=== PATIENT | male | born 1960 | race Caucasian/White ===

== ENCOUNTER 2020-11-04 17:40 | Emergency (ER) | payer SELFPAY ==
--- OUTSIDE RECORDS SUMMARY | 2020-11-04 17:46 | XMS REPORT | Clinical Summary ---
:1960 Author Organization [facility] Address [address] [place] [address] Care Team Providers Name Role Phone Asked, No Pcp Primary Care Provider Unavailable Allergies Not on File Medications Not on file Active Problems Not on file Social History Tobacco Use Types Packs/Day Years Used Date Never Assessed Sex Assigned at Date Recorded Not on file Last Filed Vital Signs Not on file Plan of Treatment Health Maintenance Due Date Last Done Comments COVID-19 VACCINE (#1) 1978 COLONOSCOPY SCREENING 2012 SHINGLES VACCINES (#1) 2012 INFLUENZA VACCINE 06/02/2020 Results Not on fileafter 11/04/2019 Advance Directives For more information, please contact: [phone] 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
--- OUTSIDE RECORDS SUMMARY | 2020-11-04 17:46 | XMS REPORT | Clinical Summary ---
:1960 Author Organization [facility] Address [address] [place] [id number] Care Team Providers Name Role Phone Franklyn Primary Care Provider Allergies Active Allergy Reactions Severity Noted Date Comments Penicillins 05/18/2017 Medications Medication Sig Dispensed Refills Start Date End Date Status tamsulosin (FLOMAX) 0.4 Take 0.4 mg by 0 Active mg Cp24 24 hr capsule mouth daily. acetaminophen (TYLENOL) Take 650 mg by 0 Active 325 MG tablet mouth every 6 (six) hours as needed for Pain. Active Problems Problem Noted Date CRISTINE (acute kidney injury) 05/19/2017 Kidney stone 05/18/2017 Type 2 diabetes mellitus without complication 05/18/20 HLD (hyperlipidemia) 05/18/2017 Family History Medical History Relation Name Comments Diabetes Father Kidney disease Father Relation Name Status Comments Father Social History Tobacco Use Types Packs/Day Years Used Date Current Every Day Smoker 1 Smokeless Tobacco: Current User Chew Tobacco Cessation: Ready to Quit: No; Co unseling Given: Yes Alcohol Use Drinks/Week oz/Week Comments Yes Sex Assigned at Date Recorded Not on file Last Filed Vital Signs Not on file Plan of Treatment Not on file Implants Implanted Type Area Editor At Large Device Shelf Model / Identifier Expiration Serial / Date Lot Stent Uret Vl Inj [id number] - [id number] Uro Stent Righ t: [place] [id number] 03/01/2019 [id number] / Implanted: Qty: 1 on 05/22/2017 by Marquise Vasquez MD at [facility] Ureter SCI:UROLOGY/GYNE / COLOGY [id number] Results Not on fileafter 11/04/2019 Advance Directives For more information, please contact: [phone] Code Status Date Activated Date Inactivated Comments Full Code 05/18/2017 10:17 PM 05/22/2017 6:10 PM This code status was determined by: Patient
--- OUTSIDE RECORDS SUMMARY | 2020-11-04 17:47 | XMS REPORT | Continuity of Care Document ---
:1960 Author Organization [facility] t Address [address] [place] [address] Care Team Providers Name Role Phone Asked, Pcp Primary Care Physician Unavailable CAILIN Attending Clinician Unavailable CAILIN Admitting Clinician Unavailable Problems Condition Condition Condition Status Onset Resolution Last Treating Co mments Source Name Details Category Date Date Treatment Clinician Date CRISTINE (acute CRISTINE (acute Disease Active [facility]) 00:00: Medical 00 [place] Kidney Kidney Disease Active [facility] stone stone 05-18 [facility] - 00:00: Medical 00 [place] Type 2 Type [address] [facility] diabetes diabetes 05-18 [facility] - mellitus mellitus 00:00: Medica l without without 00 [place] complicati complicati on on HLD HLD Disease Active [facility] (hyperlipi (hyperlipi 05-18 Shae kes - demia) demia) 00:00: Medical 00 Center Allergies, Adverse Reactions, Alerts Allergy Allergy Status Severity Reaction(s) Onset Inactive Treating Comm ents Source Name Type Date Date Clinician Penicill Propensi Active [facility] 05-18 [facility] - adverse 00:00: Medical reaction 00 [place] s Family History Family Member Diagnosis Comments Start Date Stop Date Source Natural father Diabetes [facility] Natural father Kidney disease [facility] Social History Social Habit Start Date Stop Date Quantity Comments Source History of tobacco Chews Tobacco [facility] use Medical [place] Sex Assigned At [facility] Cigarettes smoked 2017-05-22 2017-05-22 [facility] - current (pack per 00:00:00 00:00:00 Medical Center day) - Reported Tobacco use and 2017-05-22 2017-05-[address] [facility] - exposure 00:00:00 00:00:00 [facility] Alcohol intake 2017-05-22 2017-05-22 [facility] (finding) Smoking Status Start Date Stop Date Source Current every day smoker 2017-05-22 00:00:[address] [facility] Center Medications Ordered Filled Start Stop Current Ordering Indication Dosage Frequency Signature Comments Components Source Medication Medication Date Date Medication? Clinician (SIG) Name Name tamsulosin 2017- Yes .4mg QD Take 0.[address] (FLOMAX) 7-21 mg by [facility] - 0.4 mg Cp24 16:10: mouth Medic al 24 hr 26 daily. Center capsule acetaminoph Yes 650mg Take [address] en 7-21 mg by [facility] - (TYLENOL) 16:10: mouth Medical 325 MG 26 every 6 Center tablet (six) hours as needed for Pain. Procedures This patient has no known procedures. Plan of Care Planned Activity Planned Date Details Comments Source Future Scheduled 2020-06-02 INFLUENZA VACCINE [facility] 00:00:00 [code = INFLUENZA VACCINE] Future Scheduled 2012 COLONOSCOPY SCREENING [facility] 00:00:00 [code = COLONOSCOPY SCREENING] Future Scheduled 2012 SHINGLES VACCINES [facility] 00:00:00 (#1) [code = SHINGLES VACCINES (#1)] Future Scheduled 1978 COVID-19 VACCINE (#1) [facility] 00:00:00 [code = COVID-19 VACCINE (#1)] Results Test Description Test Time Test Comments Results Result Comments Source POCT-GLUCOSE METER 2017-05-22 11:34:00 Test Item Value Reference Range Interpretation Comme nts POC-GLUCOSE METER ([employer]) (test 147 mg/dL 70-110 H TESTED AT [facility] [address] [facility] code = 1538) [facility] 7703 0 POCT-GLUCOSE [id number] 06:14:00 Test Item Value Reference Range Interpretation Comments POC-GLUCOSE METER 96 mg/dL 70-110 TESTED AT [facility] 6720 (BEAKER) (test code = [facility] [address] 1538) POCT-GLUCOSE [id number] 21:48:00 Test Item Value Reference Range Interpretation Comments POC-GLUCOSE METER 114 mg/dL 70-110 H TESTED AT [place] [address] ([facility]) (test code = [facility] 1538) [id number] POCT-GLUCOSE [id number] 17:00:00 Test Item Value Reference Range Interpretation Comments POC-GLUCOSE METER 151 mg/dL 70-110 H TESTED AT [place] [address] ([facility]) (test code = [facility] 1538) [id number] POCT-GLUCOSE [id number] 12:06:00 Test Item Value Reference Range Interpretation Comments POC-GLUCOSE METER 86 mg/dL 70-110 TESTED AT [place] [address] ([facility]) (test code = [facility] [address] 1538) POCT-GLUCOSE [id number] 07:06:00 Test Item Value Reference Range Interpretation Comments POC-GLUCOSE METER 106 mg/dL 70-110 TESTED AT [place] [address] ([facility]) (test code = [facility] 1538) [id number] 05:41:00 Test Item Value Reference Range Interpretation Comments PHOSPHORUS (BEAKER) (test code = 4.0 mg/dL 2.3-4.7 604) [id number] 05:41:00 Test Item Value Reference Range Interpretation Comments MAGNESIUM (BEAKER) (test code = 1.9 mg/dL 1.6-2.6 627) BASIC METABOLIC [id number] 05:41:00 Test Item Value Reference Range Interpretation Comments SODIUM (BEAKER) 137 meq/L 136-145 (test code = 381) POTASSIUM (BEAKER) 4.1 meq/L 3.5-5.1 (test code = 379) CHLORIDE (BEAKER) 104 meq/L 98-107 (test code = 382) CO2 (BEAKER) (test 25 meq/L 22-29 code = 355) BLOOD UREA NITROGEN 17 mg/dL 7-21 (BEAKER) (test code = 354) CREATININE (BEAKER) 1.42 mg/dL 0.57-1.25 H (test code = 358) GLUCOSE RANDOM 172 mg/dL 70-105 H (BEAKER) (test code = 652) CALCIUM (BEAKER) 8.8 mg/dL 8.4-10.2 (test code = 697) EGFR (BEAKER) (test 52 mL/min/1.73 ESTIMA JACK GFR IS code = 1092) sq m NOT ACCURATE CREATININE CLEARANCE IN PREDICTING GLOMERULAR FILTRATION RATE . ESTIMATED GFR I S NOT APPLICABLE FOR DIALYSIS PATIEN TS. CBC W/PLT COUNT & AUTO [id number] 05:03:00 Test Item Value Reference Range Interpretation Comments WHITE BLOOD CELL COUNT (BEAKER) 8.7 K/ L 4.0-10.0 (test code = 775) RED BLOOD CELL COUNT (BEAKER) 4.73 M/ L 4.20-5.80 (test code = 761) HEMOGLOBIN (BEAKER) (test code = 14.1 GM/DL 13.0-16.8 410) HEMATOCRIT (BEAKER) (test code = 40.4 % 40.0-50.0 411) MEAN CORPUSCULAR VOLUME (BEAKER) 85.3 fL 82.0-98.0 (test code = 753) MEAN CORPUSCULAR HEMOGLOBIN 29.7 pg 27.0-33.0 (BEAKER) (test code = 751) MEAN CORPUSCULAR HEMOGLOBIN CONC 34.8 GM/DL 32.0-36.0 (BEAKER) (test code = 752) RED CELL DISTRIBUTION WIDTH 13.4 % 10.3-14.2 (BEAKER) (test code = 412) PLATELET COUNT (BEAKER) (test 206 K/CU MM 150-430 code = 756) MEAN PLATELET VOLUME (BEAKER) 7.6 fL 6.5-10.5 (test code = 754) NUCLEATED RED BLOOD CELLS 0 /100 WBC 0-0 (BEAKER) (test code = 413) NEUTROPHILS RELATIVE PERCENT 66 % (BEAKER) (test code = 429) LYMPHOCYTES RELATIVE PERCENT 21 % (BEAKER) (test code = 430) MONOCYTES RELATIVE PERCENT 9 % (BEAKER) (test code = 431) EOSINOPHILS RELATIVE PERCENT 2 % (BEAKER) (test code = 432) BASOPHILS RELATIVE PERCENT 1 % (BEAKER) (test code = 437) NEUTROPHILS ABSOLUTE COUNT 5.73 K/ L 1.80-8.00 (BEAKER) (test code = 670) LYMPHOCYTES ABSOLUTE COUNT 1.85 K/ L 1.48-4.50 (BEAKER) (test code = 414) MONOCYTES ABSOLUTE COUNT (BEAKER) 0.81 K/ L 0.00-1.30 (test code = 415) EOSINOPHILS ABSOLUTE COUNT 0.21 K/ L 0.00-0.50 (BEAKER) (test code = 416) BASOPHILS ABSOLUTE COUNT (BEAKER) 0.06 K/ L 0.00-0.20 (test code = 417) 0.00CALCIUM, [id number] 04:57:00 Test Item Value Reference Range Interpretation Comments CALCIUM IONIZED (BEAKER) (test 1.12 mmol/L 1.12-1.27 code = 698) PH, BLOOD (AKER) (test code = 7.38 1810) POCT-GLUCOSE [id number] 21:15:00 Test Item Value Reference Range Interpretation Comments POC-GLUCOSE METER 110 mg/dL 70-110 TESTED AT [place] [address] ([facility]) (test code = [place] 1538) [id number] POCT-GLUCOSE [id number] 17:58:00 Test Item Value Reference Range Interpretation Comments POC-GLUCOSE METER 132 mg/dL 70-110 H TESTED AT [place] [address] ([facility]) (test code = [place] 1538) [id number] POCT-GLUCOSE [id number] 11:23:00 Test Item Value Reference Range Interpretation Comments POC-GLUCOSE METER 156 mg/dL 70-110 H TESTED AT [place] [address] ([facility]) (test code = [place] 1538) [id number] URINE [id number] 10:34:00 Test Item Value Reference Range Interpretation Comments CULTURE (BEAKER) (test code = 1095) No growth POCT-GLUCOSE [id number] 07:28:00 Test Item Value Reference Range Interpretation Comments POC-GLUCOSE METER 124 mg/dL 70-110 H TESTED AT [place] [address] ([facility]) (test code = [place] 1538) [id number] 06:39:00 Test Item Value Reference Range Interpretation Comments PHOSPHORUS (BEAKER) (test code = 4.0 mg/dL 2.3-4.7 604) [id number] 06:39:00 Test Item Value Reference Range Interpretation Comments MAGNESIUM (BEAKER) (test code = 1.9 mg/dL 1.6-2.6 627) BASIC METABOLIC [id number] 06:39:00 Test Item Value Reference Range Interpretation Comments SODIUM (BEAKER) 139 meq/L 136-145 (test code = 381) POTASSIUM (BEAKER) 4.7 meq/L 3.5-5.1 (test code = 379) CHLORIDE (BEAKER) 106 meq/L 98-107 (test code = 382) CO2 (BEAKER) (test 23 meq/L 22-29 code = 355) BLOOD UREA NITROGEN 17 mg/dL 7-21 (BEAKER) (test code = 354) CREATININE (BEAKER) 1.37 mg/dL 0.57-1.25 H (test code = 358) GLUCOSE RANDOM 127 mg/dL 70-105 H (BEAKER) (test code = 652) CALCIUM (BEAKER) 9.3 mg/dL 8.4-10.2 (test code = 697) EGFR (BEAKER) (test 54 mL/min/1.73 ESTIMA JACK GFR IS code = 1092) sq m NOT ACCURATE CREATININE CLEARANCE IN PREDICTING GLOMERULAR FILTRATION RATE . ESTIMATED GFR I S NOT APPLICABLE FOR DIALYSIS PATIEN TS. LIPID [id number] 06:39:00 Test Item Value Reference Range Interpretation Comments TRIGLYCERIDES (BEAKER) (test code = 149 mg/dL 540) CHOLESTEROL (BEAKER) (test code = 188 mg/dL 631) HDL CHOLESTEROL (BEAKER) (test code 29 mg/dL = 976) LDL CHOLESTEROL CALCULATED (BEAKER) 129 mg/dL (test code = 633) Triglyceride Reference Range: Low Risk <150 Borderline 150-199 High Risk 200-499 Very High Risk >=500Cholesterol Reference Range: Low Risk <200 Borderline 200-239 High Risk >240HDL Cholesterol Reference Range: Low Risk >=60 High Risk <40LDL Cholesterol Reference Range: Optimal <100 Near Optimal 100-129 Borderline 130-159 High 160-189 Very High >=190CBC W/PLT COUNT & AUTO [id number] 06:14:00 Test Item Value Reference Range Interpretation Comments WHITE BLOOD CELL COUNT (BEAKER) 9.4 K/ L 4.0-10.0 (test code = 775) RED BLOOD CELL COUNT (BEAKER) 4.83 M/ L 4.20-5.80 (test code = 761) HEMOGLOBIN (BEAKER) (test code = 13.9 GM/DL 13.0-16.8 410) HEMATOCRIT (BEAKER) (test code = 41.2 % 40.0-50.0 411) MEAN CORPUSCULAR VOLUME (BEAKER) 85.2 fL 82.0-98.0 (test code = 753) MEAN CORPUSCULAR HEMOGLOBIN 28.7 pg 27.0-33.0 (BEAKER) (test code = 751) MEAN CORPUSCULAR HEMOGLOBIN CONC 33.7 GM/DL 32.0-36.0 (BEAKER) (test code = 752) RED CELL DISTRIBUTION WIDTH 13.2 % 10.3-14.2 (BEAKER) (test code = 412) PLATELET COUNT (BEAKER) (test 212 K/CU MM 150-430 code = 756) MEAN PLATELET VOLUME (BEAKER) 7.9 fL 6.5-10.5 (test code = 754) NUCLEATED RED BLOOD CELLS 0 /100 WBC 0-0 (BEAKER) (test code = 413) NEUTROPHILS RELATIVE PERCENT 71 % (BEAKER) (test code = 429) LYMPHOCYTES RELATIVE PERCENT 18 % (BEAKER) (test code = 430) MONOCYTES RELATIVE PERCENT 8 % (BEAKER) (test code = 431) EOSINOPHILS RELATIVE PERCENT 3 % (BEAKER) (test code = 432) BASOPHILS RELATIVE PERCENT 0 % (BEAKER) (test code = 437) NEUTROPHILS ABSOLUTE COUNT 6.65 K/ L 1.80-8.00 (BEAKER) (test code = 670) LYMPHOCYTES ABSOLUTE COUNT 1.71 K/ L 1.48-4.50 (BEAKER) (test code = 414) MONOCYTES ABSOLUTE COUNT (BEAKER) 0.77 K/ L 0.00-1.30 (test code = 415) EOSINOPHILS ABSOLUTE COUNT 0.25 K/ L 0.00-0.50 (BEAKER) (test code = 416) BASOPHILS ABSOLUTE COUNT (BEAKER) 0.03 K/ L 0.00-0.20 (test code = 417) 0.00CALCIUM, [id number] 06:11:00 Test Item Value Reference Range Interpretation Comments CALCIUM IONIZED (BEAKER) (test 1.13 mmol/L 1.12-1.27 code = 698) PH, BLOOD ([facility]) (test code = 7.34 1810) POCT-GLUCOSE [id number] 21:47:00 Test Item Value Reference Range Interpretation Comments POC-GLUCOSE METER 127 mg/dL 70-110 H TESTED AT [place] [address] ([facility]) (test code = [facility] 1538) [id number] POCT-GLUCOSE [id number] 17:00:00 Test Item Value Reference Range Interpretation Comments POC-GLUCOSE METER 122 mg/dL 70-110 H TESTED AT [place] [address] ([facility]) (test code = [facility] 1538) [id number] POCT-GLUCOSE [id number] 11:02:00 Test Item Value Reference Range Interpretation Comments POC-GLUCOSE METER 128 mg/dL 70-110 H TESTED AT [place] [address] ([facility]) (test code = [facility] 1538) [id number] POCT-GLUCOSE [id number] 07:56:00 Test Item Value Reference Range Interpretation Comments POC-GLUCOSE METER 116 mg/dL 70-110 H TESTED AT [place] [address] ([facility]) (test code = [facility] 1538) [id number] HEMOGLOBIN [id number] 07:40:00 Test Item Value Reference Range Interpretation Comments HEMOGLOBIN A1C ([facility]) (test code = 5.8 % 4.3-6.1 368) CBC W/PLT COUNT & AUTO [id number] 06:48:00 Test Item Value Reference Range Interpretation Comments WHITE BLOOD CELL COUNT ([facility]) 8.0 K/ L 4.0-10.0 (test code = 775) RED BLOOD CELL COUNT ([facility]) 4.79 M/ L 4.20-5.80 (test code = 761) HEMOGLOBIN ([facility]) (test code = 13.9 GM/DL 13.0-16.8 410) HEMATOCRIT ([facility]) (test code = 41.1 % 40.0-50.0 411) MEAN CORPUSCULAR VOLUME ([facility]) 85.7 fL 82.0-98.0 (test code = 753) MEAN CORPUSCULAR HEMOGLOBIN 28.9 pg 27.0-33.0 ([facility]) (test code = 751) MEAN CORPUSCULAR HEMOGLOBIN CONC 33.7 GM/DL 32.0-36.0 (BEAKER) (test code = 752) RED CELL DISTRIBUTION WIDTH 11.8 % 10.3-14.2 (BEAKER) (test code = 412) PLATELET COUNT (BEAKER) (test 200 K/CU MM 150-430 code = 756) MEAN PLATELET VOLUME (BEAKER) 7.6 fL 6.5-10.5 (test code = 754) NUCLEATED RED BLOOD CELLS 0 /100 WBC 0-0 (BEAKER) (test code = 413) NEUTROPHILS RELATIVE PERCENT 69 % (BEAKER) (test code = 429) LYMPHOCYTES RELATIVE PERCENT 18 % (BEAKER) (test code = 430) MONOCYTES RELATIVE PERCENT 10 % (BEAKER) (test code = 431) EOSINOPHILS RELATIVE PERCENT 2 % (BEAKER) (test code = 432) BASOPHILS RELATIVE PERCENT 0 % (BEAKER) (test code = 437) NEUTROPHILS ABSOLUTE COUNT 5.55 K/ L 1.80-8.00 (BEAKER) (test code = 670) LYMPHOCYTES ABSOLUTE COUNT 1.47 K/ L 1.48-4.50 L (BEAKER) (test code = 414) MONOCYTES ABSOLUTE COUNT (BEAKER) 0.78 K/ L 0.00-1.30 (test code = 415) EOSINOPHILS ABSOLUTE COUNT 0.18 K/ L 0.00-0.50 (BEAKER) (test code = 416) BASOPHILS ABSOLUTE COUNT (BEAKER) 0.03 K/ L 0.00-0.20 (test code = 417) [id number] 06:33:00 Test Item Value Reference Range Interpretation Comments MAGNESIUM (BEAKER) (test code = 2.1 mg/dL 1.6-2.6 627) BASIC METABOLIC [id number] 06:33:00 Test Item Value Reference Range Interpretation Comments SODIUM (BEAKER) 137 meq/L 136-145 (test code = 381) POTASSIUM (BEAKER) 4.1 meq/L 3.5-5.1 (test code = 379) CHLORIDE (BEAKER) 105 meq/L 98-107 (test code = 382) CO2 (BEAKER) (test 23 meq/L 22-29 code = 355) BLOOD UREA NITROGEN 17 mg/dL 7-21 (BEAKER) (test code = 354) CREATININE (BEAKER) 1.42 mg/dL 0.57-1.25 H (test code = 358) GLUCOSE RANDOM 110 mg/dL 70-105 H (BEAKER) (test code = 652) CALCIUM (BEAKER) 8.7 mg/dL 8.4-10.2 (test code = 697) EGFR (BEAKER) (test 52 mL/min/1.73 ESTIMA JACK GFR IS code = 1092) sq m NOT ACCURATE CREATININE CLEARANCE IN PREDICTING GLOMERULAR FILTRATION RATE . ESTIMATED GFR I S NOT APPLICABLE FOR DIALYSIS PATIEN TS. PROTHROMBIN [id number] 06:19:00 Test Item Value Reference Range Interpretation Comments PROTIME (BEAKER) (test code = 14.2 seconds 11.7-14.7 759) INR (BEAKER) (test code = 370) 1.1 <=5.9 RECOMMENDED COUMADIN/WARFARIN INR THERAPY RANGESSTANDARD DOSE: 2.0 - 3.0 Includes: PROPHYLAXIS forvenous thrombosis, systemic embolization; TREATMENT for venous thrombosis and/or pulmonary embolus.HIGH RISK: Target INR is 2.5-3.5 for patients with mechanical heart valves.URINALYSIS W/ [id number] 01:30:00 Test Item Value Reference Range Interpretation Comments COLOR (BEAKER) (test code = Yellow 470) CLARITY (BEAKER) (test code = Clear 469) SPECIFIC GRAVITY UA (BEAKER) 1.018 1.001-1.035 (test code = 468) PH UA (BEAKER) (test code = 5.5 5.0-8.0 467) PROTEIN UA (BEAKER) (test code 10 mg/dL Negative A = 464) GLUCOSE UA (BEAKER) (test code 200 mg/dL Negative A = 365) KETONES UA (BEAKER) (test code Trace Negative A = 371) BILIRUBIN UA (BEAKER) (test Negative Negative code = 462) BLOOD UA (BEAKER) (test code = Small Negative A 461) NITRITE UA (BEAKER) (test code Negative Negative = 465) LEUKOCYTE ESTERASE UA (BEAKER) Negative Negative (test code = 466) UROBILINOGEN UA (BEAKER) (test 0.2 mg/dL 0.2-1.0 code = 463) RBC UA (BEAKER) (test code = 8 /HPF 519) WBC UA (BEAKER) (test code = 2 /HPF 520) MUCUS (BEAKER) (test code = Rare 1574) SQUAMOUS EPITHELIAL (BEAKER) < /HPF (test code = 516) SOURCE(BEAKER) (test code = Urine, Voided 7209)
--- NOTE | 2020-11-04 19:38 | RAD REPORT ---
EXAM DESCRIPTION: RAD - Foot Left 3 View - 11/04/2020 7:10 pm CLINICAL HISTORY: Pain;Swelling COMPARISON: No comparisons FINDINGS: Mild soft tissue swelling is seen in the region of the forefoot. No fracture or dislocatio n. Large calcaneal spurs.
[2020-11-04] MEDS ORDERED: KETOROLAC 30 MG/ML INJ ONE (20:07)
[2020-11-04] MEDS ORDERED: CLINDAMYCIN 600MG/D5W 600 MG/50 ML BAG IV ONE (20:07)
[2020-11-04] MEDS ORDERED: TETANUS & DIPHTHERIA TOX,ADULT 0.5 ML VIAL ONE (20:08)
[2020-11-04 20:26] LABS: Absolute Lymphocytes (CBC) 2.1 K/uL (0.7-4.9); Basophils % 0.6 % (0-1.3); Lymphocytes % 16.8 % (15.3-44.8); MPV 9.4 fL (7.6-11.3); RBC Red Blood Cell Count 5.48 M/uL (4.33-5.43)
[2020-11-04 20:41] LABS: Albumin 3.7 g/dL (3.4-5.0); Bilirubin Direct 0.1 mg/dL (0-0.2); Bilirubin Total 0.6 mg/dL (0.2-1.0); Protein, Total 7.5 g/dL (6.4-8.2)
--- NOTE | 2020-11-04 21:05 | ER ---
Nurse's Notes [facility] Name: Paras Wheeler Age: 60 yrs Sex: Male : 1960 Arrival Date: 11/04/2020 Time: 17:43 Bed 15 Private MD: Diagnosis: Puncture wound without foreign body, left foot;Cellulitis of left lower limb Presentation: 11/04 18:12 Chief complaint: Patient states: Stepped on a nail with L foot 3 days ago. HX of ss diabetes. Pt reports that pain and redness began today. Coronavirus screen: Client denies travel out of the [place] in the last 14 days. Ebola Screen: Patient denies exposure to infectious person. Patient denies travel to an Ebola-affected area in the 21 days before illness onset. Initial Sepsis Screen: Does the patient meet any 2 criteria? No. Patient's initial sepsis screen is negative. Does the patient have a suspected source of infection? Yes: Skin breakdown/wound. Risk Assessment: Do you want to hurt yourself or someone else? Patient reports no desire to harm self or others. Onset of symptoms was October 31, 2020. 18:12 Method Of Arrival: Ambulatory ss 18:12 Acuity: CHENCHO 3 ss Historical: - Allergies: 18:17 PENICILLINS (Hives, rash); ss - PMHx: 18:17 Diabetes - NIDDM; Hyperlipidemia; Hypertension; ss - Immunization history:: Last tetanus immunization: Not up to date. - Social history:: Smoking status: Patient reports use of chewing tobacco. Screenin:35 Abuse screen: Denies threats or abuse. Nutritional screening: No deficits noted. jb4 Tuberculosis screening: No symptoms or risk factors identified. Fall Risk None identified. Assessment: 19:41 General: Appears in no apparent distress. comfortable, Behavior is calm, cooperative, jb4 appropriate for age. Pain: Complains of pain in ball of left foot Pain does not radiate. Pain currently is 0 out of 10 on a pain scale. at worst was 8 out of 10 on a pain scale. Quality of pain is described as throbbing. Neuro: Level of Consciousness is awake, alert, obeys commands, Oriented to person, place, time, situation. Cardiovascular: Patient's skin is warm and dry. Respiratory: Airway is patent Respiratory effort is even, unlabored, Respiratory pattern is regular, symmetrical. GI: No signs and/or symptoms were reported involving the gastrointestinal system. : No signs and/or symptoms were reported regarding the genitourinary system. EENT: No signs and/or symptoms were reported regarding the EENT system. Derm: Skin is intact, Skin is pink, warm \T\ dry. Musculoskeletal: 21:29 Reassessment: Patient appears in no apparent distress at this time. Patient and/or jb4 family updated on plan of care and expected duration. Pain level reassessed. Patient is alert, oriented x 3, equal unlabored respirations, skin warm/dry/pink. Patient states feeling better. Vital Signs: 18:12 Pulse 92; Resp 16; Temp 98.6(TE); Pulse Ox 99% on R/A; Weight 108.86 kg; Height 6 ft. 0 ss in. (182.88 cm); Pain 0/10; 18:17 BP 152 / 85; ss 19:35 BP 151 / 90; Pulse 80; Resp 16; Pulse Ox 100% on R/A; jb4 20:00 BP 126 / 78; Pulse 84; Resp 16; Pulse Ox 98% on R/A; jb4 18:12 Body Mass Index 32.55 (108.86 kg, 182.88 cm) ss ED Course: 17:43 Patient arrived in ED. rg4 18:16 Triage completed. ss 18:17 Arm band placed on right wrist. ss 19:09 XRAY Foot LEFT 3 View In Process Unspecified. EDMS 19:19 Dominik Swain MD is Attending Physician. ss 19:31 Niall Rivera, RN is Primary Nurse. jb4 19:35 Patient has correct armband on for positive identification. Bed in low position. Call jb4 light in reach. Side rails up X 1. Pulse ox on. NIBP on. 20:00 Inserted saline lock: 22 gauge in left antecubital area, using aseptic technique. Blood jb4 collected. started by Wm. environmental technician. 21:30 No provider procedures requiring assistance completed. IV discontinued, intact, jb4 bleeding controlled, No redness/swelling at site. Pressure dressing applied. 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 Exp: jb4 02/21/2022. Lot #: [id number]. } Route: IM; Site: right deltoid; 21:00 Follow up: Response: No adverse reaction jb4 Intake: 21:03 IV: 50ml; Total: 50ml. jb4 Outcome: 21:04 Discharge ordered by . tw4 21:32 Discharged to home ambulatory. jb4 21:32 Condition: stable 21:32 Discharge instructions given to patient, Instructed on discharge instructions, follow up and referral plans. medication usage, Demonstrated understanding of instructions, follow-up care, medications, Prescriptions given X 2. 21:33 Patient left the ED. jb4 Signatures: Dispatcher [employer] EDMS Malena Diaz RN RN ss Garcia, Rubi 4 Niall Rivera RN RN jb4 Dominik Swain MD MD tw4
--- NOTE | 2020-11-04 21:05 | EDPHYS ---
Physician Documentation [facility] Name: Paras Wheeler Age: 60 yrs Sex: Male : 1960 Arrival Date: 11/04/2020 Time: 17:43 Bed 15 Private MD: ED Physician Dominik Swain HPI: 11/04 20:50 This 60 yrs old Male presents to ER via Ambulatory with complaints of Foot tw4 Pain. 20:50 The patient presents with an injury. The complaints affect the left foot. Context: The tw4 problem was sustained at home, resulted from the patient stepping on a nail. 20:57 Onset: The symptoms/episode began/occurred 3 day(s) ago. Modifying factors: The tw4 symptoms are alleviated by nothing, the symptoms are aggravated by nothing. Severity of symptoms: At their worst the symptoms were moderate, in the emergency department the symptoms are unchanged. The patient has not experienced similar symptoms in the past. Historical: - Allergies: 18:17 PENICILLINS (Hives, rash); ss - PMHx: 18:17 Diabetes - NIDDM; Hyperlipidemia; Hypertension; ss - Immunization history:: Last tetanus immunization: Not up to date. - Social history:: Smoking status: Patient reports use of chewing tobacco. ROS: 20:57 MS/extremity: Positive for injury or acute deformity, pain, puncture. tw4 20:57 Constitutional: Negative for fever, chills, and weight loss, Eyes: Negative for injury, pain, redness, and discharge, Cardiovascular: Negative for chest pain, palpitations, and edema, Respiratory: Negative for shortness of breath, cough, wheezing, and pleuritic chest pain, Abdomen/GI: Negative for abdominal pain, nausea, vomiting, diarrhea, and constipation, Back: Negative for injury and pain, MS/Extremity: Negative for injury and deformity, Skin: Negative for injury, rash, and discoloration, Neuro: Negative for headache, weakness, numbness, tingling, and seizure. Exam: 20:57 Constitutional: This is a well developed, well nourished patient who is awake, alert, tw4 and in no acute distress. Head/Face: Normocephalic, atraumatic. Chest/axilla: Normal chest wall appearance and motion. Nontender with no deformity. No lesions are appreciated. Cardiovascular: Regular rate and rhythm with a normal S1 and S2. No gallops, murmurs, or rubs. Normal PMI, no JVD. No pulse deficits. Respiratory: Lungs have equal breath sounds bilaterally, clear to auscultation and percussion. No rales, rhonchi or wheezes noted. No increased work of breathing, no retractions or nasal flaring. Abdomen/GI: Soft, non-tender, with normal bowel sounds. No distension or tympany. No guarding or rebound. No evidence of tenderness throughout. Back: No spinal tenderness. No costovertebral tenderness. Full range of motion. MS/ Extremity: Pulses equal, no cyanosis. Neurovascular intact. Full, normal range of motion. Neuro: Awake and alert, GCS 15, oriented to person, place, time, and situation. Cranial nerves II-XII grossly intact. Motor strength 5/5 in all extremities. Sensory grossly intact. Cerebellar exam normal. Normal gait. Vital Signs: 18:12 Pulse 92; Resp 16; Temp 98.6(TE); Pulse Ox 99% on R/A; Weight 108.86 kg; Height 6 ft. 0 ss in. (182.88 cm); Pain 0/10; 18:17 BP 152 / 85; ss 19:35 BP 151 / 90; Pulse 80; Resp 16; Pulse Ox 100% on R/A; jb4 20:00 BP 126 / 78; Pulse 84; Resp 16; Pulse Ox 98% on R/A; jb4 18:12 Body Mass Index 32.55 (108.86 kg, 182.88 cm) ss MDM: 19:35 Patient medically screened. tw4 20:57 Differential diagnosis: fracture, penetrating trauma. Data reviewed: vital signs, tw4 nurses notes. Data reviewed: lab test result(s), CBC, electrolytes, radiologic studies, plain films. Data interpreted: Pulse oximetry: Interpretation: normal. Test interpretation: by ED physician or midlevel provider: plain radiologic studies. Medication response: Response to treatment: the patient's symptoms have markedly improved after treatment, and as a result, I will discharge patient. Special discussion: I discussed with the patient/guardian in detail that at this point there is no indication for admission to the hospital. It is understood, however, that if the symptoms persist or worsen the patient needs to return immediately for re-evaluation. 11/04 19:36 Order name: Basic Metabolic Panel tw4 11/04 19:36 Order name: CBC with Diff tw4 11/04 20:59 Interpretation: Normal except: RBC 5.48; WBC 12.7; NEUT A 9.0. tw4 11/04 18:36 Order name: XRAY Foot LEFT 3 View; Complete Time: 20:46 ss 11/04 19:36 Order name: Hepatic Function; Complete Time: 20:46 tw4 11/04 20:46 Interpretation: Normal except: AST 14; ALK 136; GLOB 3.8; A/G 1.0. tw4 11/04 19:37 Order name: Basic Metabolic Panel; Complete Time: 20:46 EDMS 11/04 20:46 Interpretation: Normal except: GFR 86; GLUC 230. tw4 11/04 20:50 Order name: CBC Smear Scan EDMS 11/04 19:36 Order name: IV Saline Lock; Complete Time: 20:33 tw4 11/04 19:36 Order name: Labs collected and sent; Complete Time: 20:12 tw4 Administered Medications: 20:33 Drug: Clindamycin 600 mg Route: IVPB; Infused Over: 30 mins; Site: left antecubital; [facility] 21:03 Follow up: Response: No adverse reaction; IV Status: Completed infusion; IV Intake: [id number] 20:33 Drug: TORadol 30 mg Route: IVP; Site: left antecubital; [facility] 21:00 Follow up: Response: No adverse reaction; Pain is decreased [facility] 20:33 Drug: Tetanus-Diphtheria Toxoid Ped 0.5 ml {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 Exp: jb4 02/21/2022. Lot #: [id number]. } Route: IM; Site: right deltoid; 21:00 Follow up: Response: No adverse reaction [facility] Disposition: 11/04/20 21:04 Discharged to Home. Impression: Puncture wound without foreign body, left foot, Cellulitis of left lower limb. - Condition is Stable. - Discharge Instructions: Cellulitis, Adult. - Prescriptions for Cleocin 300 mg Oral Capsule - take 1 capsule by ORAL route every 6 hours for 10 days; 40 capsule. Ibuprofen 800 mg Oral Tablet - take 1 tablet by ORAL route every 8 hours As needed take with food; 30 tablet. - Medication Reconciliation Form, Thank You Letter, Antibiotic Education, Prescription Opioid Use form. - Follow up: Private Physician; When: Upon discharge from the Emergency Department; Reason: Recheck today's complaints, Continuance of care, Re-evaluation by your physician. - Problem is new. - Symptoms have improved. Signatures: Dispatcher [employer] EDMS Malena Diaz, RN RN Niall Rivera RN RN jb4 Dominik Swain MD MD tw4 Corrections: (The following items were deleted from the chart) 21:33 21:04 11/04/2020 21:04 Discharged to Home. Impression: Puncture wound without foreign jb4 body, left foot; Cellulitis of left lower limb. Condition is Stable. Forms are Medication Reconciliation Form, Thank You Letter, Antibiotic Education, Prescription Opioid Use. Follow up: Private Physician; When: Upon discharge from the Emergency Department; Reason: Recheck today's complaints, Continuance of care, Re-evaluation by your physician. Problem is new. Symptoms have improved. tw4
[2020-11-04 21:31] LABS: Blood Morphology Comment NOT SEEN (NOT SEEN); Platelet Estimate ADEQ; White Blood Cell Scan OK (OK)
[2020-11-04 21:46] VITALS: TEMP 98.6
[2020-11-04 21:50] VITALS: BP 126/78; O2SAT 98
== END 2020-11-04 21:33 | disposition home or self-care (01) ==
LOC: ER 17:40
DX: L03.116 Cellulitis of left lower limb (principal); S91.332A Puncture wound without foreign body, left foot, initial encounter; W22.8XXA Striking against or struck by other objects, initial encounter; Y93.9 Activity, unspecified; Y92.009 Unspecified place in unspecified non-institutional (private) residence as the place of occurrence of the external cause; Z23 Encounter for immunization; Z88.0 Allergy status to penicillin; F17.220 Nicotine dependence, chewing tobacco, uncomplicated; I10 Essential (primary) hypertension
CPT/HCPCS: 36415; 80048; 80076; 85025; 90471; 90714; 96365; 96375; 99284

== ENCOUNTER 2021-04-18 07:44 | Emergency (ER) | payer SELFPAY ==
--- OUTSIDE RECORDS SUMMARY | 2021-04-18 07:47 | XMS REPORT | Continuity of Care Document ---
:1960 Author Organization [facility] t Address [address] [place] [address] Care Team Providers Name Role Phone Shar[place]ichael Primary Care Physician CAILIN Attending Clinician Unavailable CAILIN Admitting Clinician Unavailable Problems Condition Condition Condition Status Onset Resolution Last Treating Co mments Source Name Details Category Date Date Treatment Clinician Date CRISTINE (acute CRISTINE (acute Disease Active [facility] 00:00: Medical 00 [place] Kidney Kidney Disease [facility] 00 [place] Type 2 Type [address] [facility] - mellitus mellitus 00:00: Medica l without without 00 [place] complicati complicati on on HLD HLD Disease Active [facility] (hyperlipi (hyperlipi 05-18 [facility] - demia) demia) 00:00: Medical 00 Center Allergies, Adverse Reactions, Alerts Allergy Allergy Status Severity Reaction(s) Onset Inactive Treating Comm ents Source Name Type Date Date Clinician Penicill Propensi Active [facility] - adverse 00:00: Medical reaction 00 [place] s Family History Family Member Diagnosis Comments Start Date Stop Date Source Natural father Diabetes [facility] Natural father Kidney disease [facility] Social History Social Habit Start Date Stop Date Quantity Comments Source Sex Assigned At [facility] History of tobacco Chews Tobacco [facility] use [facility] Alcohol intake 2017-05-22 2017-05-22 [facility] [facility] (finding) Cigarettes smoked 2017-05-22 2017-05-[address] [facility] - current (pack per 00:00:00 00:00:00 Medical Center day) - Reported Tobacco use and 2017-05-22 2017-05-[address] [facility] - exposure 00:00:00 00:00:00 Medical Center Smoking Status Start Date Stop Date Source Current every day smoker 2017-05-22 00:00:[address] [facility] Medications Ordered Filled Start Stop Current Ordering Indication Dosage Frequency Signature Comments Components Source Medication Medication Date Date Medication? Clinician (SIG) Name Name tamsulosin Yes .4mg QD Take 0.[address] [...] Planned Date Details Comments Source Future Scheduled 2021-06-02 INFLUENZA VACCINE [place] [facility] 00:00:00 [code = INFLUENZA VACCINE] Future Scheduled 2012 COLONOSCOPY SCREENING [place] [facility] 00:00:00 [code = COLONOSCOPY SCREENING] Future Scheduled 2012 SHINGLES VACCINES [place] [facility] 00:00:00 (#1) [code = SHINGLES VACCINES (#1)] Future Scheduled 1974 COVID-19 VACCINE (1) [place] [facility] 00:00:00 [code = COVID-19 VACCINE (1)] Results Test Description Test Time Test Comments Results Result Comments Source POCT-GLUCOSE METER 2017-05-22 11:34:00 Test Item Value Reference Range Interpretation Comme nts POC-GLUCOSE METER (MARNI) (test 147 mg/dL 70-110 H TESTED AT [facility] [address] code = 1538) [facility] 7703 0 POCT-GLUCOSE [id number] 06:14:00 Test Item Value Reference Range Interpretation Comments POC-GLUCOSE METER 96 mg/dL 70-110 TESTED AT [place] [address] (BEAKER) (test code = LEIDY Campbell [facility] [address] 1538) POCT-GLUCOSE [id number] 21:48:00 Test Item Value Reference Range Interpretation Comments POC-GLUCOSE METER 114 mg/dL 70-110 H TESTED AT [place] [address] (BEAKER) (test code = LEIDY Campbell [facility] 1538) [id number] POCT-GLUCOSE [id number] 17:00:00 Test Item Value Reference Range Interpretation Comments POC-GLUCOSE METER 151 mg/dL 70-110 H TESTED AT [place] [address] ([facility]) (test code = LEIDY [place] [facility] 1538) [id number] POCT-GLUCOSE [id number] 12:06:00 Test Item Value Reference Range Interpretation Comments POC-GLUCOSE METER 86 mg/dL 70-110 TESTED AT [place] [address] ([facility]) (test code = LEIDY Campbell [facility] [address] 1538) POCT-GLUCOSE [id number] 07:06:00 Test Item Value Reference Range Interpretation Comments POC-GLUCOSE METER 106 mg/dL 70-110 TESTED AT [place] [address] ([facility]) (test code = [facility] Shannan [facility] 1538) [address] [id number] 05:41:00 Test Item Value Reference Range Interpretation Comments PHOSPHORUS (BEAKER) (test code = 4.0 mg/dL 2.3-4.7 604) [id number] 05:41:00 Test Item Value Reference Range Interpretation Comments MAGNESIUM (BEAKER) (test code = 1.9 mg/dL 1.6-2.6 627) BASIC METABOLIC [id number] 05:41:00 Test Item Value Reference Range Interpretation [...] PATIEN TS. CBC W/PLT COUNT & AUTO [id number] 05:03:00 Test Item Value Reference Range Interpretation [...] L 0.00-0.20 (test code = 417) 0.00CALCIUM, [id number] 04:57:00 Test Item Value Reference Range Interpretation Comments CALCIUM IONIZED (AKER) (test 1.12 mmol/L 1.12-1.27 code = 698) PH, BLOOD ([facility]) (test code = 7.38 1810) POCT-GLUCOSE [id number] 21:15:00 Test Item Value Reference Range Interpretation Comments POC-GLUCOSE METER 110 mg/dL 70-110 TESTED AT [place] [address] ([facility]) (test code = LEIDY Campbell [facility] 1538) [address] POCT-GLUCOSE [id number] 17:58:00 Test Item Value Reference Range Interpretation Comments POC-GLUCOSE METER 132 mg/dL 70-110 H TESTED AT [place] [address] ([facility]) (test [facility] = [facility] 1538) [id number] POCT-GLUCOSE [id number] 11:23:00 Test Item Value Reference Range Interpretation Comments POC-GLUCOSE METER 156 mg/dL 70-110 H TESTED AT [place] [address] ([facility]) (test code = [facility] 1538) [id number] URINE [id number] 10:34:00 Test Item Value Reference Range Interpretation Comments CULTURE ([facility]) (test code = 1095) No growth POCT-GLUCOSE [id number] 07:28:00 Test Item Value Reference Range Interpretation Comments POC-GLUCOSE METER 124 mg/dL 70-110 H TESTED AT [place] [address] ([facility]) (test code = LEIDY Campbell [facility] 1538) [id number] 06:39:00 Test Item Value Reference Range Interpretation Comments PHOSPHORUS (BEAKER) (test code = 4.0 mg/dL 2.3-4.7 604) [id number] 06:39:00 Test Item Value Reference Range Interpretation Comments MAGNESIUM (BEAKER) (test code = 1.9 mg/dL 1.6-2.6 627) BASIC METABOLIC [id number] 06:39:00 Test Item Value Reference Range Interpretation [...] NOT APPLICABLE FOR DIALYSIS PATIEN TS. LIPID [id number] 06:39:00 Test Item Value Reference Range Interpretation [...] Very High >=190CBC W/PLT COUNT & AUTO [id number] 06:14:00 Test Item Value Reference Range Interpretation [...] L 0.00-0.20 (test code = 417) 0.00CALCIUM, [id number] 06:11:00 Test Item Value Reference Range Interpretation Comments CALCIUM IONIZED (BEAKER) (test 1.13 mmol/L 1.12-1.27 code = 698) PH, BLOOD ([facility]) (test code = 7.34 1810) POCT-GLUCOSE [id number] 21:47:00 Test Item Value Reference Range Interpretation Comments POC-GLUCOSE METER 127 mg/dL 70-110 H TESTED AT [place] [address] ([facility]) (test code = [facility] 1538) [id number] POCT-GLUCOSE [id number] 17:00:00 Test Item Value Reference Range Interpretation Comments POC-GLUCOSE METER 122 mg/dL 70-110 H TESTED AT [place] [address] ([facility]) (test code = [facility] 1538) [id number] POCT-GLUCOSE [id number] 11:02:00 Test Item Value Reference Range Interpretation Comments POC-GLUCOSE METER 128 mg/dL 70-110 H TESTED AT [place] [address] ([facility]) (test code = [facility] 1538) [id number] POCT-GLUCOSE [id number] 07:56:00 Test Item Value Reference Range Interpretation Comments POC-GLUCOSE METER 116 mg/dL 70-110 H TESTED AT [place] [address] ([facility]) (test code = [facility] 1538) [address] HEMOGLOBIN [id number] 07:40:00 Test Item Value Reference Range Interpretation Comments HEMOGLOBIN A1C ([facility]) (test code = 5.8 % 4.3-6.1 368) CBC W/PLT COUNT & AUTO [id number] 06:48:00 Test Item Value Reference Range Interpretation Comments WHITE BLOOD CELL COUNT ([facility]) 8.0 K/ L 4.0-10.0 (test code = 775) RED BLOOD CELL COUNT ([facility]) 4.79 M/ L 4.20-5.80 (test code = 761) HEMOGLOBIN (BEAKER) (test code = 13.9 GM/DL 13.0-16.8 410) HEMATOCRIT ([facility]) (test code = 41.1 % 40.0-50.0 411) MEAN CORPUSCULAR VOLUME ([facility]) 85.7 fL 82.0-98.0 (test code = 753) MEAN CORPUSCULAR HEMOGLOBIN 28.9 pg 27.0-33.0 (BEAKER) (test code = 751) [...] K/ L 0.00-0.20 (test code = 417) [id number] 06:33:00 Test Item Value Reference Range Interpretation Comments MAGNESIUM (BEAKER) (test code = 2.1 mg/dL 1.6-2.6 627) BASIC METABOLIC [id number] 06:33:00 Test Item Value Reference Range Interpretation [...] NOT APPLICABLE FOR DIALYSIS PATIEN TS. PROTHROMBIN [id number] 06:19:00 Test Item Value Reference Range Interpretation Comments PROTIME (BEAKER) (test code = 14.2 seconds 11.7-14.7 759) INR (BEAKER) (test code = 370) 1.1 <=5.9 RECOMMENDED COUMADIN/WARFARIN INR THERAPY RANGESSTANDARD DOSE: 2.0 - 3.0 Includes: PROPHYLAXIS forvenous thrombosis, systemic embolization; TREATMENT for venous thrombosis and/or pulmonary embolus.HIGH RISK: Target INR is 2.5-3.5 for patients with mechanical heart valves.URINALYSIS W/ [id number] 01:30:00 Test Item Value Reference Range Interpretation [...] 516) SOURCE(BEAKER) (test code = Urine, Voided 6607)
[2021-04-18] MEDS ORDERED: TETRACAINE HCL 0.5% 4ML OPTH ONE (08:26)
[2021-04-18] MEDS ORDERED: FLUORESCEIN SODIUM 1 MG/WRAP ONE (08:26)
--- NOTE | 2021-04-18 08:28 | ER ---
Nurse's Notes [facility] Name: Paras Wheeler Age: 60 yrs Sex: Male : 1960 Arrival Date: 04/18/2021 Time: 07:46 Bed 14 Private MD: Diagnosis: Corneal abrasion Presentation: 04/18 07:58 Chief complaint: Patient states: Left eye pain, possible foreign body. Pt states pain ld1 began last night prior to bed, woke up this morning and eye was matted shut. Coronavirus screen: At this time, the client does not indicate any symptoms associated with coronavirus-19. Ebola Screen: No symptoms or risks identified at this time. Initial Sepsis Screen: Does the patient meet any 2 criteria? No. Patient's initial sepsis screen is negative. Does the patient have a suspected source of infection? No. Patient's initial sepsis screen is negative. Risk Assessment: Do you want to hurt yourself or someone else? Patient reports no desire to harm self or others. Onset of symptoms was April 18, 2021. 07:58 Method Of Arrival: Ambulatory ld1 07:58 Acuity: CHENCHO 4 ld1 Triage Assessment: 08:00 General: Appears in no apparent distress. uncomfortable, Behavior is calm, cooperative, ld1 appropriate for age. Pain: Complains of pain in left eye Pain currently is 8 out of 10 on a pain scale. Quality of pain is described as sharp, throbbing, Pain began 1 day ago. Is continuous. EENT: Eyes are tearing on outer aspect of conjuctiva of left eye, iris of left eye and inner aspect of conjunctiva of left eye Reports pain in left eye. Neuro: Level of Consciousness is awake, alert, obeys commands, Oriented to person, place, time, situation, Appropriate for age. Cardiovascular: Capillary refill < 3 seconds Patient's skin is warm and dry. Respiratory: Airway is patent Respiratory effort is even, unlabored, Respiratory pattern is regular, symmetrical. GI: Abdomen is round non-distended. : No signs and/or symptoms were reported regarding the genitourinary system. Derm: No signs and/or symptoms reported regarding the dermatologic system. Musculoskeletal: No signs and/or symptoms reported regarding the musculoskeletal system. Historical: - Allergies: 08:00 PENICILLINS (Hives, rash); ld1 - Home Meds: 08:00 None [Active]; ld1 - PMHx: 08:00 Diabetes - NIDDM; Hyperlipidemia; Hypertension; ld1 - PSHx: 08:00 None; ld1 - Immunization history:: Adult Immunizations up to date. - Social history:: Smoking status: Patient denies any tobacco usage or history of. Screenin:02 Abuse screen: Denies threats or abuse. Denies injuries from another. Nutritional ld1 screening: No deficits noted. Tuberculosis screening: No symptoms or risk factors identified. Fall Risk None identified. Assessment: 08:02 Reassessment: See triage assessment. ld1 09:11 Reassessment: Patient appears in no apparent distress at this time. No changes from ld1 previously documented assessment. Patient is alert, oriented x 3, equal unlabored respirations, skin warm/dry/pink. Vital Signs: 07:58 BP 155 / 101; Pulse 65; Resp 18; Temp 98.5(O); Pulse Ox 98% on R/A; Weight 113.4 kg; ld1 Height 6 ft. 0 in. (182.88 cm); Pain 8/10; 09:11 BP 147 / 102; Pulse 72; Resp 18; Pulse Ox 100% on R/A; ld1 07:58 Body Mass Index 33.91 (113.40 kg, 182.88 cm) ld1 ED Course: 07:46 Patient arrived in ED. as 07:53 Taryn Lujan, TOYIN is Primary Nurse. ld1 08:00 Triage completed. ld1 08:00 Arm band placed on right wrist. ld1 08:02 Spike Hawley MD is Attending Physician. kdr 08:02 Patient has correct armband on for positive identification. Bed in low position. Call ld1 light in reach. Side rails up X2. Pulse ox on. NIBP on. Door closed. Noise minimized. Warm blanket given. 08:15 Assist provider with eye exam of left eye. ld1 09:12 Patient did not have IV access during this emergency room visit. ld1 Administered Medications: 08:50 Drug: Gentamicin Ointment 0.3 % 0.5 inches Route: Ophthalmic; Site: left eye; ld1 08:54 Drug: Lisinopril 20 mg Route: PO; ld1 09:15 Follow up: Response: No adverse reaction ld1 Outcome: 08:28 Discharge ordered by . denilson 09:12 Discharged to home ambulatory. ld1 09:12 Condition: stable 09:12 Discharge instructions given to patient, Instructed on discharge instructions, follow up and referral plans. medication usage, Demonstrated understanding of instructions, follow-up care, medications. 09:12 Patient left the ED. ld1 Signatures: Spike Hawley MD MD kdr Martinez, Amelia as Dibbern, Lauren, RN RN ld1
--- NOTE | 2021-04-18 08:29 | EDPHYS ---
Physician Documentation [facility] Name: Paras Wheeler Age: 60 yrs Sex: Male : 1960 Arrival Date: 04/18/2021 Time: 07:46 Bed 14 Private MD: ED Physician Spike Hawley HPI: 04/18 08:19 This 60 yrs old Male presents to ER via Ambulatory with complaints of left kdr eye pain and watering. 08:19 The patient is experiencing burning, pain, redness, tearing. Onset: The kdr symptoms/episode began/occurred gradually, yesterday. Duration: the symptoms are continuous. Aggravated by blinking. Associated signs and symptoms: Pertinent positives: chills, Pertinent negatives: None. Patient wears glasses. Severity of symptoms: At their worst the symptoms were mild in the emergency department the symptoms are unchanged. The patient has not experienced similar symptoms in the past. The patient has not recently seen a physician. Tetanus - current. Historical: - Allergies: 08:00 PENICILLINS (Hives, rash); ld1 - Home Meds: 08:00 None [Active]; ld1 - PMHx: 08:00 Diabetes - NIDDM; Hyperlipidemia; Hypertension; ld1 - PSHx: 08:00 None; ld1 - Immunization history:: Adult Immunizations up to date. - Social history:: Smoking status: Patient denies any tobacco usage or history of. ROS: 08:19 Constitutional: Negative for fever, chills, and weight loss, Eyes: Negative for injury, kdr pain, redness, and discharge, Neck: Negative for injury, pain, and swelling, Cardiovascular: Negative for chest pain, palpitations, and edema, Respiratory: Negative for shortness of breath, cough, wheezing, and pleuritic chest pain. 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 Exam: 08:19 Constitutional: This is a well developed, well nourished patient who is awake, alert, kdr and in no acute distress. Head/Face: Normocephalic, atraumatic. ENT: Nares patent. No nasal discharge, no septal abnormalities noted. Tympanic membranes are normal and external auditory canals are clear. Oropharynx with no redness, swelling, or masses, exudates, or evidence of obstruction, uvula midline. Mucous membranes moist. Neck: Trachea midline, no thyromegaly or masses palpated, and no cervical lymphadenopathy. Supple, full range of motion without nuchal rigidity, or vertebral point tenderness. No Meningismus. Chest/axilla: Normal chest wall appearance and motion. Nontender with no deformity. No lesions are appreciated. 08:19 Eyes: Periorbital structures: appear normal, Pupils: equal, round, and reactive to light and accomodation, Extraocular movements: intact throughout, Conjunctiva: Corneas: abrasion, a fluorescein strip employed to appreciate the findings, Sclera: no appreciated abnormality, Anterior chamber: normal. Vital Signs: 07:58 BP 155 / 101; Pulse 65; Resp 18; Temp 98.5(O); Pulse Ox 98% on R/A; Weight 113.4 kg; ld1 Height 6 ft. 0 in. (182.88 cm); Pain 8/10; 09:11 BP 147 / 102; Pulse 72; Resp 18; Pulse Ox 100% on R/A; ld1 07:58 Body Mass Index 33.91 (113.40 kg, 182.88 cm) ld1 MDM: 08:28 Patient medically screened. kdr 08:32 Data reviewed: vital signs, nurses notes. Counseling: I had a detailed discussion with kdr the patient and/or guardian regarding: the historical points, exam findings, and any diagnostic results supporting the discharge/admit diagnosis, the need for outpatient follow up. 04/18 08:19 Order name: [facility]. Order: Flush OS with 500 cc NS; Complete Time: 08:23 kdr Administered Medications: 08:50 Drug: Gentamicin Ointment 0.3 % 0.5 inches Route: Ophthalmic; Site: left eye; ld1 08:54 Drug: Lisinopril 20 mg Route: PO; ld1 09:15 Follow up: Response: No adverse reaction ld1 Disposition: 04/18/21 08:28 Discharged to Home. Impression: Corneal abrasion. - Condition is Stable. - Discharge Instructions: Corneal Abrasion, [id number]. - Prescriptions for Tramadol 50 mg Oral Tablet - take 1 tablet by ORAL route every 8 hours as needed; 12 tablet. Gentamicin 0.3 % (3 mg/gram) Ophthalmic Ointment - apply 0.5 inch by OPHTHALMIC route every 8 hours; 1 tube. Lisinopril 20 mg Oral Tablet - take 1 tablet by ORAL route once daily; 20 tablet. - Medication Reconciliation Form, Thank You Letter, Antibiotic Education, Prescription Opioid Use form. - Follow up: Private Physician; When: 2 - 3 days; Reason: If symptoms return, Further diagnostic work-up, Recheck today's complaints, Continuance of care, Re-evaluation by your physician. - Problem is new. - Symptoms have improved. Signatures: Spike Hawley MD MD [facility] Taryn Lujan RN RN ld1 Corrections: (The following items were deleted from the chart) 09:12 08:28 04/18/2021 08:28 Discharged to Home. Impression: Corneal abrasion. Condition is ld1 Stable. Forms are Medication Reconciliation Form, Thank You Letter, Antibiotic Education, Prescription Opioid Use. Follow up: Private Physician; When: 2 - 3 days; Reason: If symptoms return, Further diagnostic work-up, Recheck today's complaints, Continuance of care, Re-evaluation by your physician. Problem is new. Symptoms have improved. kdr
[2021-04-18] MEDS ORDERED: NA CHLORIDE 0.9% 500 ML ONE (08:38)
[2021-04-18] MEDS ORDERED: GENTAMICIN 0.3% OPTH OINT 3.5GM LEFT EYE ONE (08:45)
[2021-04-18] MEDS ORDERED: lisinopriL 20 MG TAB ONE (09:08)
[2021-04-18 09:19] VITALS: TEMP 98.5
[2021-04-18 09:22] VITALS: BP 147/102; O2SAT 100
== END 2021-04-18 09:12 | disposition home or self-care (01) ==
LOC: ER 07:44
DX: S05.02XA Injury of conjunctiva and corneal abrasion without foreign body, left eye, initial encounter (principal); I10 Essential (primary) hypertension; Z88.0 Allergy status to penicillin
CPT/HCPCS: J7040

== ENCOUNTER 2022-01-23 17:58 | Emergency (ER) | payer SELFPAY ==
--- OUTSIDE RECORDS SUMMARY | 2022-01-23 18:02 | XMS REPORT | Continuity of Care Document ---
:1960 Author Organization [facility] t Address [address] [place] [address] Care Team Providers Name Role Phone Misa MI III Primary Care Physician Unavailable Jillian BAUTISTA Attending Clinician Unavailable CAILIN Attending Clinician Unavailable CAILIN Admitting Clinician Unavailable Problems This patient has no known problems. Allergies, Adverse Reactions, Alerts Allergy Allergy Status Severity Reaction(s) Onset Inactive Treating Comm ents Source Name Type Date Date Clinician [facility] Active Hives [facility] 05-04 ity of 00:00: [address] Medications This patient has no known medications. Procedures This patient has no known procedures. Encounters Start End Encounter Admission Attending Care Care Encounter Source Date/Time Date/Time Type Type Clinicians Facility Department ID 2021-02-14 2021-02-14 Outpatient Shannan [facility] [id number] [facility] 11:50:00 11:03:26 [facility] 2021-01-24 2021-01-24 Outpatient Shannan [facility] [id number] [facility] 11:50:00 11:31:26 [facility] Results Test Description Test Time Test Comments Results Result Comments Source HEMOGLOBIN A1c 2021-12-31 03:18:11 Test Item Value Reference Range Interpretation Comme nts HEMOGLOBIN A1c (test code = 9.0 % 4.2-5.6 H [facility] 31469) GUIDELINES FOR HGB A1C: PREDIABETES/INC REASED RISK . . . . . . . 5.7-6.4% DIAGNOSIS OF DIABETES . . . . . . . . . >=6.5% WITH CONFIRMATION OR APPROPRIATE SYMPTOMS NOTE: ASSAY MA Y BE AFFECTED BY HEMOGLOBINOPATH IES (SICKLE CELL ANEMIA, S-C DIS EASE, OTHERS) OR ARTIFICIALLY LO WERED BY DECREASED RED CELL SURVIV AL (HEMOLYTIC ANEMIAS, BLOOD LOSS, ETC.). CONSIDER ALTERNATE TESTI NG OR LABORATORY CONSULTATION. UNLESS OTHERWISE INDICATED, ALL TESTING PERFORMED ATCLINICAL PATH [employer] [address] [place] [address] LABORATORY DIRE CTOR: REY HURTADO M.D. CLIA NUMBER [id number] CAP ACCREDITATION N O. [id number] VITAMIN [id number] 06:01:18 Test Item Value Reference Range Interpretation Comments VITAMIN B-12 (test code = 2840) 346 PG/ML 200-950 [id number] 04:31:58 Test Item Value Reference Range Interpretation Comments RPR RESULT (test code = NON-REACTIVE NON-REACTIVE 3500) RPR TITER (test code = 3500) NOT INDIC. TITER NOT INDIC. COMPREHENSIVE METABOLIC [id number] 04:04:23 Test Item Value Reference Range Interpretation Comments GLUCOSE (test code = 322 MG/DL 70-99 H 2216) BUN (test code = 12 MG/DL 6-20 2207) CREATININE (test 0.85 MG/DL 0.80-1.40 code = 2214) eGFR (2020 CKD-EPI) 100 >60 (test code = 08840) ML/MIN/1.73 CALC BUN/CREAT (test 14 RATIO 6-28 code = 2235) SODIUM (test code = 138 MEQ/L 760-235 2306) POTASSIUM (test code 4.7 MEQ/L 3.5-5.4 = 2227) CHLORIDE (test code 97 MEQ/L 95-107 = 2214) CARBON DIOXIDE (test 27 MEQ/L 19-31 code = 2206) CALCIUM (test code = 9.5 MG/DL 8.5-10.5 2208) PROTEIN, TOTAL (test 7.0 G/DL 6.1-8.3 code = 2229) ALBUMIN (test code = 4.4 G/DL 3.5-5.2 2200) CALC GLOBULIN (test 2.6 G/DL 1.9-3.7 code = 2240) CALC A/G RATIO (test 1.7 RATIO 1.0-2.6 code = 2234) BILIRUBIN, TOTAL 0.6 MG/DL See_Comment [Automated message] (test code = 2207) The syste m which generated this result transmit jack reference range : <=1.2. The refe rence range was not u sed to interpret th is result as normal/abnormal . ALKALINE PHOSPHATASE 153 U/L 40-123 H (test code = 2203) AST (test code = 27 U/L 9-50 2217) ALT (test code = 26 U/L 5-50 2218) LIPID [id number] 04:04:23 Test Item Value Reference Range Interpretation Comments CHOLESTEROL (test 214 MG/DL <200 H code = 2210) TRIGLYCERIDES (test 428 MG/DL <150 H code = 2232) HDL CHOLESTEROL 29 MG/DL >39 L (test code = 2220) CALC LDL CHOL (test (NOTE) MG/DL <100 UNABLE T O CALCULATE A code = 2237) VALID LDL MANUELA STEROL WHEN THE TRIGLYCERIDEVAL UE IS GREATER THAN 40 0 MG/DL. NOTE: CALCULATE D LDL IS BASED ON RAFAEL -WALLS METHOD WHICHINC LUDES ADJUSTABLE TRIGLYCERIDE:VL DL CHOLESTEROL RAT IO.THIS FACTOR VARIES B Y MEASURED TRIGLY CERIDE AND NON-HDLCHOL ESTEROL CONCENTRATIONS WITH INCREASED CALCU LATED LDL SEENIN HIGH ER TRIGLYCERIDE OR LOWER NON-HDL SPECIME NS. FOR MOREINFORMATION , SEE CLIENT ANNOUNCE MENT AT [email or web address] CalcLDL-C RISK RATIO LDL/HDL 4.55 RATIO <3.55 H (test code = 2237) UNABLE TO CALCULATE UNLESS OTHERW ISE INDICATED, ALL TESTING PERFORMED [facility] PATH[facility] [address] [place] [address] 4 LABORATORY DI BERNICE: Wendy STEVENS [id number] CAP ACCREDITATION N O. [id number] CBC W/AUTO DIFF WITH [id number] 03:07:43 Test Item Value Reference Range Interpretation Comments WBC (test code = 7.8 K/UL 3.5-11.0 1001) RBC (test code = 5.72 M/UL 4.50-6.10 1002) HEMOGLOBIN (test code 16.4 G/DL 13.5-17.0 = 1003) HEMATOCRIT (test code 46.7 % 40.0-51.0 = 1004) MCV (test code = 81.6 fL 80.0-99.0 1005) MCH (test code = 28.7 PG 25.0-33.0 1006) MCHC (test code = 35.1 G/DL 31.0-36.0 1007) RDW (test code = 13.1 % 11.5-15.0 1038) NEUTROPHILS (test 63.3 % code = 1008) LYMPHOCYTES (test 24.4 % code = 1010) MONOCYTES (test code 7.9 % = 1011) EOSINOPHILS (test 2.7 % code = 1012) BASOPHILS (test code 0.8 % = 1013) IMMATURE GRANYLOCYTES 0.9 % (test code = 1036) NUCLEATED RBCS (test 0.0 /100 See_Comment [Autom ated code = 1065) WBC'S message] The sy stem which generated this result transmitted reference range : 0.0. The refere nce range was not u sed to interpret th is result as normal/abnormal . PLATELET COUNT (test 216 K/UL 130-400 code = 1015) ABSOLUTE NEUTROPHILS 4.95 K/UL 1.50-7.50 (test code = 1066) ABSOLUTE LYMPHOCYTES 1.91 K/UL 1.00-4.00 (test code = 1067) ABSOLUTE MONOCYTES 0.62 K/UL 0.20-1.00 (test code = 1068) ABSOLUTE EOSINOPHILS 0.21 K/UL 0.00-0.50 (test code = 1040) ABSOLUTE BASOPHILS 0.06 K/UL 0.00-0.20 (test code = 1069) ABS IMMATURE 0.07 K/UL 0.00-0.10 GRANULOCYTES (test code = 1020) ABS NUCLEATED RBCS 0.00 K/UL 0.00-0.11 (test code = 32219) POCT-GLUCOSE [id number] 11:34:00 Test Item Value Reference Range Interpretation Comments POC-GLUCOSE METER 147 mg/dL 70-110 H TESTED AT [place] [address] ([employer]) (test code = LEIDY Campbell [facility] 1538) [address] POCT-GLUCOSE [id number] 06:14:00 Test Item Value Reference Range Interpretation Comments POC-GLUCOSE METER 96 mg/dL 70-110 TESTED AT [place] [address] ([employer]) (test code = LEIDY [facility] [address] 1538) POCT-GLUCOSE [id number] 21:48:00 Test Item Value Reference Range Interpretation Comments POC-GLUCOSE METER 114 mg/dL 70-110 H TESTED AT [facility] 6720 (BEAKER) (test code = LEIDY Campbell [facility] 1538) [id number] POCT-GLUCOSE [id number] 17:00:00 Test Item Value Reference Range Interpretation Comments POC-GLUCOSE METER 151 mg/dL 70-110 H TESTED AT [place] [address] (BEAKER) (test code = [facility] Shannan [facility] 1538) [address] POCT-GLUCOSE [id number] 12:06:00 Test Item Value Reference Range Interpretation Comments POC-GLUCOSE METER 86 mg/dL 70-110 TESTED AT [place] [address] (BEAKER) (test code = [facility] Shannan [facility] [address] 1538) POCT-GLUCOSE [id number] 07:06:00 Test Item Value Reference Range Interpretation Comments POC-GLUCOSE METER 106 mg/dL 70-110 TESTED AT [place] [address] (BEAKER) (test code = [facility] Shannan [facility] 1538) [address] [id number] 05:41:00 Test Item Value Reference Range Interpretation Comments PHOSPHORUS (BEAKER) (test code = 4.0 mg/dL 2.3-4.7 604) [id number] 05:41:00 Test Item Value Reference Range Interpretation Comments MAGNESIUM (BEAKER) (test code = 1.9 mg/dL 1.6-2.6 627) BASIC METABOLIC [id number] 05:41:00 Test Item Value Reference Range Interpretation [...] PATIEN TS. CBC W/PLT COUNT & AUTO [id number] 05:03:00 Test Item Value Reference Range Interpretation [...] EOSINOPHILS ABSOLUTE COUNT 0.21 K/ L 0.00-0.50 (AKER) (test code = 416) BASOPHILS ABSOLUTE COUNT (BEAKER) 0.06 K/ L 0.00-0.20 (test code = 417) 0.00CALCIUM, [id number] 04:57:00 Test Item Value Reference Range Interpretation Comments CALCIUM IONIZED ([facility]) (test 1.12 mmol/L 1.12-1.27 code = 698) PH, BLOOD ([facility]) (test code = 7.38 1810) POCT-GLUCOSE [id number] 21:15:00 Test Item Value Reference Range Interpretation Comments POC-GLUCOSE METER 110 mg/dL 70-110 TESTED AT [place] [address] ([facility]) (test code = [facility] Shannan [facility] 1538) [address] POCT-GLUCOSE [id number] 17:58:00 Test Item Value Reference Range Interpretation Comments POC-GLUCOSE METER 132 mg/dL 70-110 H TESTED AT [place] [address] ([facility]) (test code = [facility] 1538) [address] POCT-GLUCOSE [id number] 11:23:00 Test Item Value Reference Range Interpretation Comments POC-GLUCOSE METER 156 mg/dL 70-110 H TESTED AT [place] [address] ([facility]) (test code = [facility] 1538) [id number] URINE [id number] 10:34:00 Test Item Value Reference Range Interpretation Comments CULTURE ([facility]) (test code = 1095) No growth POCT-GLUCOSE [id number] 07:28:00 Test Item Value Reference Range Interpretation Comments POC-GLUCOSE METER 124 mg/dL 70-110 H TESTED AT [place] [address] ([facility]) (test code = [facility] 1538) [address] [id number] 06:39:00 Test Item Value Reference Range Interpretation Comments PHOSPHORUS (BEAKER) (test code = 4.0 mg/dL 2.3-4.7 604) [id number] 06:39:00 Test Item Value Reference Range Interpretation Comments MAGNESIUM ([facility]) (test code = 1.9 mg/dL 1.6-2.6 627) BASIC METABOLIC [id number] 06:39:00 Test Item Value Reference Range Interpretation [...] NOT APPLICABLE FOR DIALYSIS PATIEN TS. LIPID [id number] 06:39:00 Test Item Value Reference Range Interpretation [...] Very High >=190CBC W/PLT COUNT & AUTO [id number] 06:14:00 Test Item Value Reference Range Interpretation [...] L 0.00-0.20 (test code = 417) 0.00CALCIUM, [id number] 06:11:00 Test Item Value Reference Range Interpretation Comments CALCIUM IONIZED (BEAKER) (test 1.13 mmol/L 1.12-1.27 code = 698) PH, BLOOD (BEAKER) (test code = 7.34 1810) POCT-GLUCOSE [id number] 21:47:00 Test Item Value Reference Range Interpretation Comments POC-GLUCOSE METER 127 mg/dL 70-110 H TESTED AT [place] [address] ([facility]) ([facility] 1538) [id number] POCT-GLUCOSE [id number] 17:00:00 Test Item Value Reference Range Interpretation Comments POC-GLUCOSE METER 122 mg/dL 70-110 H TESTED AT [place] [address] ([facility]) (test code = [facility] 1538) [id number] POCT-GLUCOSE [id number] 11:02:00 Test Item Value Reference Range Interpretation Comments POC-GLUCOSE METER 128 mg/dL 70-110 H TESTED AT [place] [address] ([facility]) (test code = [facility] 1538) [address] POCT-GLUCOSE [id number] 07:56:00 Test Item Value Reference Range Interpretation Comments POC-GLUCOSE METER 116 mg/dL 70-110 H TESTED AT [place] [address] ([facility]) (test code = [facility] 1538) [address] HEMOGLOBIN [id number] 07:40:00 Test Item Value Reference Range Interpretation Comments HEMOGLOBIN A1C ([facility]) (test code = 5.8 % 4.3-6.1 368) CBC W/PLT COUNT & AUTO [id number] 06:48:00 Test Item Value Reference Range Interpretation Comments WHITE BLOOD CELL COUNT ([facility]) 8.0 K/ L 4.0-10.0 (test code = 775) RED BLOOD CELL COUNT ([facility]) 4.79 M/ L 4.20-5.80 (test code = 761) HEMOGLOBIN (BEAKER) (test code = 13.9 GM/DL 13.0-16.8 410) HEMATOCRIT ([facility]) (test code = 41.1 % 40.0-50.0 411) MEAN CORPUSCULAR VOLUME ([facility]) 85.7 fL 82.0-98.0 (test code = 753) MEAN CORPUSCULAR HEMOGLOBIN 28.9 pg 27.0-33.0 ([facility]) (test code = 751) MEAN CORPUSCULAR HEMOGLOBIN [...] K/ L 0.00-0.20 (test code = 417) [id number] 06:33:00 Test Item Value Reference Range Interpretation Comments MAGNESIUM (BEAKER) (test code = 2.1 mg/dL 1.6-2.6 627) BASIC METABOLIC [id number] 06:33:00 Test Item Value Reference Range Interpretation [...] NOT APPLICABLE FOR DIALYSIS PATIEN TS. PROTHROMBIN [id number] 06:19:00 Test Item Value Reference Range Interpretation Comments PROTIME (BEAKER) (test code = 14.2 seconds 11.7-14.7 759) INR (BEAKER) (test code = 370) 1.1 <=5.9 RECOMMENDED COUMADIN/WARFARIN INR THERAPY RANGESSTANDARD DOSE: 2.0 - 3.0 Includes: PROPHYLAXIS forvenous thrombosis, systemic embolization; TREATMENT for venous thrombosis and/or pulmonary embolus.HIGH RISK: Target INR is 2.5-3.5 for patients with mechanical heart valves.URINALYSIS W/ [id number] 01:30:00 Test Item Value Reference Range Interpretation [...] 516) SOURCE(BEAKER) (test code = Urine, Voided 9554)
--- NOTE | 2022-01-23 19:12 | RAD REPORT ---
EXAM DESCRIPTION: RAD - Hand Right 3 View - 01/23/2022 7:03 pm CLINICAL HISTORY: Pain;Swelling COMPARISON: No comparisons FINDINGS: Soft tissue swelling is seen along the dorsum of the mid hand. No acute fracture or disloc ation.
--- NOTE | 2022-01-23 19:25 | EDPHYS ---
Physician Documentation [facility] Name: Paras Wheeler Age: 61 yrs Sex: Male : 1960 Arrival Date: 01/23/2022 Time: 17:59 Bed 30 Private MD: ED Physician Spike Hawley HPI: 01/23 19:28 This 61 yrs old Male presents to ER via Ambulatory with complaints of Hand Injury, Fall kdr Injury. 19:28 The patient or guardian reports an abrasion, a contusion, decreased range of motion, kdr injury, pain. The complaints affect the right hand diffusely, MCP of right index finger and MCP of right middle finger. Context: The problem was sustained at home, resulted from a fall, while walking, Patient was carrying wood with the right hand and tripped and fell. His head struck the ground causing an abrasion. Onset: The symptoms/episode began/occurred acutely, suddenly, just prior to arrival. Modifying factors: The symptoms are alleviated by nothing, the symptoms are aggravated by movement, dependent position. Associated signs and symptoms: The patient has no apparent associated signs or symptoms. Severity of symptoms: At their worst the symptoms were mild, in the emergency department the symptoms are unchanged. The patient has not experienced similar symptoms in the past. The patient has not recently seen a physician. Historical: - Allergies: 18:00 PENICILLINS (Hives, rash); ll1 - PMHx: 18:00 Diabetes - NIDDM; Hyperlipidemia; Hypertension; ll1 - Immunization history:: Client reports receiving the 2nd dose of the Covid vaccine. - Social history:: Smoking status: Patient reports use of chewing tobacco. Patient denies any tobacco usage or history of. ROS: 19:28 Constitutional: Negative for fever, chills, and weight loss. kdr 19:28 MS/extremity: Positive for injury or acute deformity, abrasion, decreased range of motion, ecchymosis, erythema, pain, swelling, tenderness, of the dorsal aspect of proximal phalanx of right index finger, dorsal aspect of proximal phalanx of right middle finger and dorsum of right hand. Exam: 19:28 Constitutional: This is a well developed, well nourished patient who is awake, alert, kdr and in no acute distress. 19:28 Musculoskeletal/extremity: Extremities: grossly normal except: noted in the dorsal aspect of proximal phalanx of right index finger, dorsal aspect of proximal phalanx of right middle finger and dorsum of right hand: abrasion, contusion, decreased ROM, erythema, pain, swelling, tenderness. Vital Signs: 18:06 BP 143 / 98; Pulse 71; Resp 17; Temp 98.2(TE); Pulse Ox 99% ; Weight 106.59 kg; Height ll1 6 ft. 0 in. (182.88 cm); Pain 8/10; 19:35 BP 131 / 84; Pulse 75; Resp 18; Pulse Ox 98% on R/A; lr4 18:06 Body Mass Index 31.87 (106.59 kg, 182.88 cm) ll1 MDM: 19:24 Patient medically screened. kdr 19:31 Data reviewed: vital signs, nurses notes, radiologic studies. Counseling: I had a kdr detailed discussion with the patient and/or guardian regarding: the historical points, exam findings, and any diagnostic results supporting the discharge/admit diagnosis, radiology results, the need for outpatient follow up. 01/23 18:18 Order name: Hand Right 3 View XRAY; Complete Time: 19:14 kdr 01/23 18:18 Order name: Misc. Order: clean and dress hand wounds; Complete Time: 18:27 kdr Administered Medications: 19:35 Not Given (Patient Refused): Cipro (ciprofloxacin) 500 mg PO once lr4 19:38 Drug: Cipro (ciprofloxacin) 500 mg Route: PO; bb 19:38 Follow up: Response: Medication administered at discharge. bb Disposition Summary: 01/23/22 19:24 Discharge Ordered Location: Home kdr Problem: new kdr Symptoms: have improved kdr Condition: Stable kdr Diagnosis - Contusion of right hand kdr - Abrasion of right hand kdr Followup: kdr - With: Private Physician - When: 2 - 3 days - Reason: If symptoms return, Further diagnostic work-up, Recheck today's complaints, Continuance of care, Re-evaluation by your physician Discharge Instructions: - Discharge Summary Sheet kdr - Hand Contusion, [id number] kdr - Abrasion, [id number] kdr Forms: - Medication Reconciliation Form kdr - Thank You Letter kdr - Antibiotic Education kdr Prescriptions: - Ibuprofen 600 mg Oral Tablet - take 1 tablet by ORAL route every 6 hours As needed take with food; 16 tablet; kdr Refills: 0, Product Selection Permitted - Cipro 500 mg Oral Tablet - take 1 tablet by ORAL route every 12 hours for 7 days; 14 tablet; Refills: 0, kdr Product Selection Permitted Signatures: Dispatcher [employer] Spike Hernandez MD MD kdr Ballard, Brenda, RN RN bb Judy Pack RN RN ll1 Paola Wesley RN lr4
--- NOTE | 2022-01-23 19:25 | ER ---
Nurse's Notes [facility] Name: Paras Wheeler Age: 61 yrs Sex: Male : 1960 Arrival Date: 01/23/2022 Time: 17:59 Bed 30 Private MD: Diagnosis: Contusion of right hand;Abrasion of right hand Presentation: 01/23 18:00 Ebola Screen: Patient denies travel to an Ebola-affected area in the 21 days before ll1 illness onset. Risk Assessment: Do you want to hurt yourself or someone else? Patient reports no desire to harm self or others. 18:00 Method Of Arrival: Ambulatory ll1 18:06 Chief complaint: Patient states: Trip and fall onto R hand today. Abrasions and ll1 swelling to knuckles. Denies LOC. States he has been falling a lot lately, but doesn't have the insurance to follow-up with specialists. Coronavirus screen: Vaccine status: Patient reports receiving the 2nd dose of the covid vaccine. Client denies travel out of the [place] in the last 14 days. At this time, the client does not indicate any symptoms associated with coronavirus-19. Initial Sepsis Screen: Does the patient meet any 2 criteria? No. Patient's initial sepsis screen is negative. Does the patient have a suspected source of infection? Yes: Skin breakdown/wound. Onset of symptoms was January 23, 2022. 18:06 Acuity: CHENCHO 3 ll1 Triage Assessment: 18:09 General: Appears uncomfortable, Behavior is calm, cooperative, appropriate for age. ll1 Pain: Complains of pain in right hand Quality of pain is described as aching. Derm: abrasions to R hand. Musculoskeletal: Circulation, motion, and sensation intact. Capillary refill < 3 seconds, Swelling present in right hand Tenderness present in right hand Reports pain in right hand. Injury Description: Abrasion Bruise Deformity. Historical: - Allergies: 18:00 PENICILLINS (Hives, rash); ll1 - PMHx: 18:00 Diabetes - NIDDM; Hyperlipidemia; Hypertension; ll1 - Immunization history:: Client reports receiving the 2nd dose of the Covid vaccine. - Social history:: Smoking status: Patient reports use of chewing tobacco. Patient denies any tobacco usage or history of. Screenin:34 Abuse screen: Denies threats or abuse. Nutritional screening: No deficits noted. lr4 Tuberculosis screening: No symptoms or risk factors identified. Fall Risk None identified. Assessment: 18:28 General: Appears in no apparent distress. comfortable, Behavior is calm, cooperative. lr4 Neuro: No deficits noted. Cardiovascular: No deficits noted. Respiratory: No deficits noted. Derm: Skin has skin tears on R hand Wound noted right hand multiple abrasions to R hand, swelling noted as well Reports pain that is 10 out of 10 on a pain scale. Musculoskeletal: No deficits noted. Injury Description: fall. Vital Signs: 18:06 BP 143 / 98; Pulse 71; Resp 17; Temp 98.2(TE); Pulse Ox 99% ; Weight 106.59 kg; Height ll1 6 ft. 0 in. (182.88 cm); Pain 8/10; 19:35 BP 131 / 84; Pulse 75; Resp 18; Pulse Ox 98% on R/A; lr4 18:06 Body Mass Index 31.87 (106.59 kg, 182.88 cm) ll1 ED Course: 17:59 Patient arrived in ED. as 17:59 Arm band placed on. ll1 18:04 Sipke Hawley MD is Attending Physician. kdr 18:06 Patient placed in an exam room, on a stretcher. ll1 18:09 Triage completed. ll1 18:27 Paola Wesley, RN is Primary Nurse. lr4 18:35 Patient has correct armband on for positive identification. Bed in low position. Call lr4 light in reach. Side rails up X 1. Door closed. Noise minimized. 18:35 No provider procedures requiring assistance completed. Patient did not have IV access lr4 during this emergency room visit. 19:05 Hand Right 3 View XRAY In Process Unspecified. EDMS 19:38 Primary Nurse role handed off by Paola Wesley, RN bb Administered Medications: 19:35 Not Given (Patient Refused): Cipro (ciprofloxacin) 500 mg PO once lr4 19:38 Drug: Cipro (ciprofloxacin) 500 mg Route: PO; bb 19:38 Follow up: Response: Medication administered at discharge. bb Outcome: 19:24 Discharge ordered by . kdr 19:36 Discharged to home ambulatory. lr4 19:36 Condition: stable 19:36 Discharge instructions given to patient. 19:36 Patient left the ED. lr4 19:39 Patient left the ED. bb Signatures: Dispatcher [employer] EDMS Spike Hawley MD MD kdr Martinez, Amelia as Ballard, Brenda, RN RN bb Judy Pack RN RN ll1 Paola Wesley RN RN lr4 Corrections: (The following items were deleted from the chart) 18:12 18:06 BP 143 / 98; Pulse 71bpm; Resp 17bpm; Pulse Ox 99%; 106.59 kg; Height 6 ft. 0 ll1 in.; BMI: 31.8; Pain 8/10; ll1
[2022-01-23] MEDS ORDERED: CIPROFLOXACIN HCL 500 MG TAB ONE (19:39)
[2022-01-23 19:52] VITALS: TEMP 98.2
[2022-01-23 19:54] VITALS: BP 131/84; O2SAT 98
== END 2022-01-23 19:39 | disposition home or self-care (01) ==
LOC: ER 17:58
DX: S60.511A Abrasion of right hand, initial encounter (principal); W18.30XA Fall on same level, unspecified, initial encounter; Y93.01 Activity, walking, marching and hiking; Y92.009 Unspecified place in unspecified non-institutional (private) residence as the place of occurrence of the external cause; Z88.0 Allergy status to penicillin; E11.9 Type 2 diabetes mellitus without complications; I10 Essential (primary) hypertension; F17.220 Nicotine dependence, chewing tobacco, uncomplicated
CPT/HCPCS: 99283

== ENCOUNTER 2022-03-10 20:14 | Emergency (ER) | payer SELFPAY ==
--- OUTSIDE RECORDS SUMMARY | 2022-03-10 20:17 | XMS REPORT | Continuity of Care Document ---
:1960 Author Organization [facility] t Address [address] [place] [address] Care Team Providers Name Role Phone Misa MI III Primary Care Physician Unavailable Jillian BAUTISTA Attending Clinician Unavailable CAILIN Attending Clinician Unavailable CAILIN Admitting Clinician Unavailable Problems This patient has no known problems. Allergies, Adverse Reactions, Alerts Allergy Allergy Status Severity Reaction(s) Onset Inactive Treating Comm ents Source Name Type Date Date Clinician PENICILL DRUG Active Hives NPI:[id number] IN [facility] 05-04 [id number] 00:00: 00 Medications This patient has no known medications. Procedures This patient has no known procedures. Encounters Start End Encounter Admission Attending Care Care Encounter Source Date/Time Date/Time Type Type Clinicians Facility Department ID 2021-02-14 2021-02-14 Outpatient Shannan BAUTISTA [facility] [id number] NPI:[id number] 11:50:00 11:03:26 CANDY [id number] 1 2021-01-24 2021-01-24 Outpatient Shannan BAUTISTA [facility] [id number] NPI:[id number] 11:50:00 11:31:26 CANDY [id number] 1 Results Test Description Test Time Test Comments Results Result Comments Source HEMOGLOBIN A1c 2021-12-31 03:18:11 Test Item Value Reference Range Interpretation Comme nts HEMOGLOBIN A1c (test code = 9.0 % 4.2-5.6 H [employer] 38144) GUIDELINES FOR HGB A1C: PREDIABETES/INC REASED RISK [...] OTHERWISE INDICATED, ALL TESTING PERFORMED ATCLINICAL PATH [employer] [address] [place] [address] LABORATORY DIRE CTOR: REY HURTADO M.D. [place] NUMBER [id number] CAP ACCREDITATION N O. [id number] VITAMIN [id number] 06:01:18 Test Item Value Reference Range Interpretation Comments VITAMIN B-12 (test code = 2840) 346 PG/ML 200-950 [id number] 04:31:58 Test Item Value Reference Range Interpretation Comments RPR RESULT (test code = NON-REACTIVE NON-REACTIVE 3501) RPR TITER (test code = 3500) NOT INDIC. TITER NOT INDIC. COMPREHENSIVE METABOLIC [id number] 04:04:23 Test Item Value Reference Range Interpretation Comments GLUCOSE (test code = 322 MG/DL 70-99 H 2216) BUN (test code = 12 MG/DL 6-20 2207) CREATININE (test 0.85 MG/DL 0.80-1.40 code = 2214) eGFR (2020 CKD-EPI) 100 >60 (test code = 71407) ML/MIN/1.73 CALC BUN/CREAT (test 14 RATIO 6-28 code = 2235) SODIUM (test code = 138 MEQ/L 476-363 9816) POTASSIUM (test code 4.7 MEQ/L 3.5-5.4 = 2227) CHLORIDE (test code 97 MEQ/L 95-107 = 2214) CARBON DIOXIDE (test 27 MEQ/L 19-31 code = 2206) CALCIUM (test code = 9.5 MG/DL 8.5-10.5 2208) PROTEIN, TOTAL (test 7.0 G/DL 6.1-8.3 code = 222) ALBUMIN (test code = 4.4 G/DL 3.5-5.2 2200) CALC GLOBULIN (test 2.6 G/DL 1.9-3.7 code = 2240) CALC A/G RATIO (test 1.7 RATIO 1.0-2.6 code = 2234) BILIRUBIN, TOTAL 0.6 MG/DL See_Comment [Automated message] (test code = 220) The syste m which generated this result transmit jack reference range : <=1.2. The refe rence range was not u sed to interpret th is result as normal/abnormal . ALKALINE PHOSPHATASE 153 U/L 40-123 H (test code = 2203) AST (test code = 27 U/L 9-50 2217) ALT (test code = 26 U/L 5-50 2218) LIPID [id number] 04:04:23 Test Item Value Reference Range Interpretation [...] MOREINFORMATION , SEE CLIENT ANNOUNCE MENT AT [email or web address] CalcLDL-C RISK RATIO LDL/HDL 4.55 RATIO <3.55 H (test code = 2237) UNABLE TO CALCULATE UNLESS OTHERW ISE INDICATED, ALL TESTING PERFORMED [facility] [address] [place] [address] 4 LABORATORY DI BERNICE: Wendy STEVENS [id number] CAP ACCREDITATION N O. [id number] CBC W/AUTO DIFF WITH [id number] 03:07:43 Test Item Value Reference Range Interpretation [...] RBCS 0.00 K/UL 0.00-0.11 (test code = 33465) POCT-GLUCOSE [id number] 11:34:00 Test Item Value Reference Range Interpretation Comments POC-GLUCOSE METER 147 mg/dL 70-110 H TESTED AT [place] [address] ([facility]) (test code = [facility]RENAE Campbell [facility] 1538) [address] POCT-GLUCOSE [id number] 06:14:00 Test Item Value Reference Range Interpretation Comments POC-GLUCOSE METER 96 mg/dL 70-110 TESTED AT [place] [address] ([facility]) (test code = [facility] Shannan [facility] [address] 1538) POCT-GLUCOSE [id number] 21:48:00 Test Item Value Reference Range Interpretation Comments POC-GLUCOSE METER 114 mg/dL 70-110 H TESTED AT [facility] 6720 (BEAKER) (test code = [facility]RENAE Campbell [facility] 1538) [address] POCT-GLUCOSE [id number] 17:00:00 Test Item Value Reference Range Interpretation Comments POC-GLUCOSE METER 151 mg/dL 70-110 H TESTED AT [place] [address] ([facility]) (test code = [facility] 1538) [address] POCT-GLUCOSE [id number] 12:06:00 Test Item Value Reference Range Interpretation Comments POC-GLUCOSE METER 86 mg/dL 70-110 TESTED AT [place] [address] ([facility]) (test code = [facility] [address] 1538) POCT-GLUCOSE [id number] 07:06:00 Test Item Value Reference Range Interpretation Comments POC-GLUCOSE METER 106 mg/dL 70-110 TESTED AT [place] [address] ([facility]) (test code = [facility] 1538) [address] [id number] 05:41:00 Test Item Value Reference Range Interpretation Comments PHOSPHORUS (BEAKER) (test code = 4.0 mg/dL 2.3-4.7 604) [id number] 05:41:00 Test Item Value Reference Range Interpretation Comments MAGNESIUM (BEAKER) (test code = 1.9 mg/dL 1.6-2.6 627) BASIC METABOLIC [id number] 05:41:00 Test Item Value Reference Range Interpretation [...] PATIEN TS. CBC W/PLT COUNT & AUTO [id number] 05:03:00 Test Item Value Reference Range Interpretation [...] L 0.00-0.20 (test code = 417) 0.00CALCIUM, [id number] 04:57:00 Test Item Value Reference Range Interpretation Comments CALCIUM IONIZED (AKER) (test 1.12 mmol/L 1.12-1.27 code = 698) PH, BLOOD ([facility]) (test code = 7.38 1810) POCT-GLUCOSE [id number] 21:15:00 Test Item Value Reference Range Interpretation Comments POC-GLUCOSE METER 110 mg/dL 70-110 TESTED AT [place] [address] ([facility]) (test code = LEIDY Campbell [facility] 1538) [address] POCT-GLUCOSE [id number] 17:58:00 Test Item Value Reference Range Interpretation Comments POC-GLUCOSE METER 132 mg/dL 70-110 H TESTED AT [place] [address] ([facility]) (test code = LEIDY Campbell [facility] 1538) [address] POCT-GLUCOSE [id number] 11:23:00 Test Item Value Reference Range Interpretation Comments POC-GLUCOSE METER 156 mg/dL 70-110 H TESTED AT [place] [address] ([facility]) (test code = [facility]RENAE Campbell [facility] 1538) [address] URINE [id number] 10:34:00 Test Item Value Reference Range Interpretation Comments CULTURE ([facility]) (test code = 1095) No growth POCT-GLUCOSE [id number] 07:28:00 Test Item Value Reference Range Interpretation Comments POC-GLUCOSE METER 124 mg/dL 70-110 H TESTED AT [place] [address] ([facility]) (test code = LEIDY Campbell [place] 1538) [address] [id number] 06:39:00 Test Item Value Reference Range Interpretation Comments PHOSPHORUS (BEAKER) (test code = 4.0 mg/dL 2.3-4.7 604) [id number] 06:39:00 Test Item Value Reference Range Interpretation Comments MAGNESIUM (BEAKER) (test code = 1.9 mg/dL 1.6-2.6 627) BASIC METABOLIC [id number] 06:39:00 Test Item Value Reference Range Interpretation [...] NOT APPLICABLE FOR DIALYSIS PATIEN TS. LIPID [id number] 06:39:00 Test Item Value Reference Range Interpretation [...] Very High >=190CBC W/PLT COUNT & AUTO [id number] 06:14:00 Test Item Value Reference Range Interpretation [...] L 0.00-0.20 (test code = 417) 0.00CALCIUM, [id number] 06:11:00 Test Item Value Reference Range Interpretation Comments CALCIUM IONIZED (BEAKER) (test 1.13 mmol/L 1.12-1.27 code = 698) PH, BLOOD (BEAKER) (test code = 7.34 1810) POCT-GLUCOSE [id number] 21:47:00 Test Item Value Reference Range Interpretation Comments POC-GLUCOSE METER 127 mg/dL 70-110 H TESTED AT [place] [address] ([facility]) (test code = [facility] 1538) [address] POCT-GLUCOSE [id number] 17:00:00 Test Item Value Reference Range Interpretation Comments POC-GLUCOSE METER 122 mg/dL 70-110 H TESTED AT [place] [address] ([facility]) (test code = [facility] 1538) [address] POCT-GLUCOSE [id number] 11:02:00 Test Item Value Reference Range Interpretation Comments POC-GLUCOSE METER 128 mg/dL 70-110 H TESTED AT [place] [address] ([facility]) (test code = [facility] 1538) [address] POCT-GLUCOSE [id number] 07:56:00 Test Item Value Reference Range Interpretation Comments POC-GLUCOSE METER 116 mg/dL 70-110 H TESTED AT [place] [address] ([facility]) (test code = [facility] 1538) [address] HEMOGLOBIN [id number] 07:40:00 Test Item Value Reference Range Interpretation Comments HEMOGLOBIN A1C ([facility]) (test code = 5.8 % 4.3-6.1 368) CBC W/PLT COUNT & AUTO [id number] 06:48:00 Test Item Value Reference Range Interpretation Comments WHITE BLOOD CELL COUNT ([facility]) 8.0 K/ L 4.0-10.0 (test code = 775) RED BLOOD CELL COUNT ([facility]) 4.79 M/ L 4.20-5.80 (test code = 761) HEMOGLOBIN ([facility]) (test code = 13.9 GM/DL 13.0-16.8 410) HEMATOCRIT ([facility]) (test code = 41.1 % 40.0-50.0 411) MEAN CORPUSCULAR VOLUME ([facility]) 85.7 fL 82.0-98.0 (test code = 753) MEAN CORPUSCULAR HEMOGLOBIN 28.9 pg 27.0-33.0 ([facility]) (test code = 751) MEAN CORPUSCULAR [...] K/ L 0.00-0.20 (test code = 417) [id number] 06:33:00 Test Item Value Reference Range Interpretation Comments MAGNESIUM (BEAKER) (test code = 2.1 mg/dL 1.6-2.6 627) BASIC METABOLIC [id number] 06:33:00 Test Item Value Reference Range Interpretation [...] NOT APPLICABLE FOR DIALYSIS PATIEN TS. PROTHROMBIN [id number] 06:19:00 Test Item Value Reference Range Interpretation Comments PROTIME (BEAKER) (test code = 14.2 seconds 11.7-14.7 759) INR (BEAKER) (test code = 370) 1.1 <=5.9 RECOMMENDED COUMADIN/WARFARIN INR THERAPY RANGESSTANDARD DOSE: 2.0 - 3.0 Includes: PROPHYLAXIS forvenous thrombosis, systemic embolization; TREATMENT for venous thrombosis and/or pulmonary embolus.HIGH RISK: Target INR is 2.5-3.5 for patients with mechanical heart valves.URINALYSIS W/ [id number] 01:30:00 Test Item Value Reference Range Interpretation [...] 516) SOURCE(BEAKER) (test code = Urine, Voided 2093)
--- NOTE | 2022-03-10 21:00 | RAD REPORT ---
EXAM DESCRIPTION: CT - Stone Protocol - 03/10/2022 8:53 pm CLINICAL HISTORY: Flank pain. acute right abd pain x 1 week, hx of kidney stone COMPARISON: Stone Protocol dated 05/18/2017 TECHNIQUE: Axial images were obtained without oral or IV contrast. Lack of contrast limits solid org an and vascular assessment. The ucyhr-[id number]-xcbv spans the entirety of the system partially obscuring uppermost abdomen and lung bases. Coronal reformatted images were obtained and reviewed. All CT scans are performed using dose optimization technique as appropriate and may include automated exposure control or mA/KV adjustment according to patient size. FINDINGS: 6-7 mm noncalcified pulmonary nodule has developed left lung base posteriorly. Imaged portions of the liver and spleen show no suspicious findings on non-contrast imaging. The panc reas and adrenal glands are normal. No pathologic lymphadenopathy in the abdomen or pelvis. 16 mm oblong stone is present in the right renal pelvis with mild right hydronephrosis. Additional pu nctate calculi are present in the calices of both kidneys, largest on the right measuring 5 mm. No bowel obstruction, free air, free fluid or abscess. Normal appendix noted.Sigmoid diverticulosis c clara is present without diverticulitis. Moderate lumbosacral degenerative changes are present. IMPRESSION: 16 mm oblong stone is present in the right renal pelvis with mild right hydronephrosis. Punctate bilateral caliceal stones bilaterally. 6-7 mm noncalcified pulmonary nodule has developed left lung base posteriorly. Recommend nonemergent CT chest followup.
[2022-03-10 21:54] LABS: Urine Blood 3+ (Negative); Urine Glucose 1+ (Negative); Urine Protein 2+ (Negative); Urine Specific Gravity >=1.030 (1.005-1.030); Urine pH 5.5 (5.0-7.0)
[2022-03-10 23:35] LABS: Absolute Lymphocytes (CBC) 2.3 K/uL (0.7-4.9); Hematocrit 44.1 % (39.6-49.0); Lymphocytes % 26.6 % (15.3-44.8); MPV 8.7 fL (7.6-11.3)
[2022-03-10 23:47] LABS: Potassium 3.9 mmol/L (3.5-5.1)
--- NOTE | 2022-03-10 23:54 | EDPHYS ---
Physician Documentation [facility] Name: Paras Wheeler Age: 61 yrs Sex: Male : 1960 Arrival Date: 03/10/2022 Time: 20:15 Bed 19 Private MD: ED Physician Kenneth Walker HPI: 03/10 22:16 This 61 yrs old Male presents to ER via Ambulatory with complaints of Flank Pain, jr8 Possible Kidney Stone. 22:16 The patient complains of pain in the right flank. The pain does not radiate. Onset: The jr8 symptoms/episode began/occurred gradually, 5 day(s) ago. Associated signs and symptoms: The patient has no apparent associated signs or symptoms. Severity of pain: At its worst the pain was moderate in the emergency department the pain has improved mildly. It is unknown whether or not the patient has had similar symptoms in the past. The patient has not recently seen a physician. This is a 61-year-old male patient who presented to the emergency room with right flank pain. Patient has a history of renal stones in the past and thought he may have another 1. Stated that he had hematuria about 2 days ago. Denies any fevers, nausea, vomiting. Historical: - Allergies: 20:39 PENICILLINS (Hives, rash); lp1 - Home Meds: 20:39 Janumet 50-1,000 mg oral tab 1 tab 2 times per day [Active]; lovastatin 20 mg Oral tab lp1 [Active]; - PMHx: 20:39 Diabetes - NIDDM; Hyperlipidemia; Hypertension; Kidney stone; lp1 - PSHx: 20:39 Lithotripsy; lp1 - Immunization history:: Adult Immunizations up to date, Client reports receiving the 2nd dose of the Covid vaccine. - Social history:: Smoking status: Patient reports use of chewing tobacco. ROS: 22:16 Eyes: Negative for injury, pain, redness, and discharge, ENT: Negative for injury, jr8 pain, and discharge, Neck: Negative for injury, pain, and swelling, Cardiovascular: Negative for chest pain, palpitations, and edema, Respiratory: Negative for shortness of breath, cough, wheezing, and pleuritic chest pain, Abdomen/GI: Negative for abdominal pain, nausea, vomiting, diarrhea, and constipation, MS/Extremity: Negative for injury and deformity, Skin: Negative for injury, rash, and discoloration, Neuro: Negative for headache, weakness, numbness, tingling, and seizure. 22:16 Constitutional: Negative for fever, chills, and weight loss. 22:16 Back: Positive for flank pain, on the right. Exam: 22:16 Constitutional: This is a well developed, well nourished patient who is awake, alert, jr8 and in no acute distress. Cardiovascular: Regular rate and rhythm with a normal S1 and S2. No gallops, murmurs, or rubs. Normal PMI, no JVD. No pulse deficits. Respiratory: Lungs have equal breath sounds bilaterally, clear to auscultation and percussion. No rales, rhonchi or wheezes noted. No increased work of breathing, no retractions or nasal flaring. Abdomen/GI: Soft, non-tender, with normal bowel sounds. No distension or tympany. No guarding or rebound. No evidence of tenderness throughout. Skin: Warm, dry with normal turgor. Normal color with no rashes, no lesions, and no evidence of cellulitis. MS/ Extremity: Pulses equal, no cyanosis. Neurovascular intact. Full, normal range of motion. Neuro: Awake and alert, GCS 15, oriented to person, place, time, and situation. Cranial nerves II-XII grossly intact. Motor strength 5/5 in all extremities. Sensory grossly intact. 22:16 Back: pain, that is mild, of the right flank, ROM is normal, normal spinal alignment noted, CVA tenderness, that is mild, is noted on the right, vertebral tenderness, is not appreciated. Vital Signs: 20:36 BP 151 / 94; Pulse 75; Resp 20; Temp 98.9(O); Pulse Ox 99% on R/A; Weight 104.33 kg lp1 (R); Height 6 ft. 0 in. (182.88 cm); Pain 6/10; 22:36 BP 134 / 88; Pulse 64; Resp 16; Pulse Ox 97% on R/A; ll3 23:40 BP 141 / 88; Pulse 63; Resp 16; Pulse Ox 97% on R/A; ll3 20:36 Body Mass Index 31.19 (104.33 kg, 182.88 cm) lp1 MDM: 20:43 Patient medically screened. [facility] 22:16 Data reviewed: vital signs, nurses notes, lab test result(s), radiologic studies, CT [facility] scan. Data interpreted: Pulse oximetry: on room air is 99 %. Interpretation: normal. Counseling: I had a detailed discussion with the patient and/or guardian regarding: the historical points, exam findings, and any diagnostic results supporting the discharge/admit diagnosis, lab results, radiology results, the need for outpatient follow up, a urologist, to return to the emergency department if symptoms worsen or persist or if there are any questions or concerns that arise at home. ED course: Patient hemodynamically stable and without acute renal dysfunction. Patient afebrile. Has only mild hydronephrosis on CT scan without any other acute findings. Discussed with patient that he will need to follow-up with urology for further evaluation of his 16mm renal pelvic stone. If at any point time we are to run fever, have decreased and or inability to urinate or has vomiting or unable to keep food or fluid down, to immediately come back for further evaluation. Patient ago plan at this time will follow up. I also placed a call to Dr. Hayes urology and left a message so that he can be consulted and patient can follow-up with him. Awaiting callback.. 23:21 ED course: Spoke with Dr. Hayes. As long as renal function comes back normal and [facility] patient will be able to discharge him home and Dr. Hayes will see him in the next 24 to 48 hours. If the renal function is abnormal will admit for stent placement.. 03/11 22:25 Special discussion: I discussed with the patient the need to follow-up with the [facility] PCP/specialist for the noted incidental finding on X-ray/CT scanning. Called patient to make sure he new about pulmonary nodule and need for f/u CT of chest to determine stability . 03/10 21:37 Order name: CBC with Diff; Complete Time: 23:53 ll3 03/10 21:37 Order name: Basic Metabolic Panel; Complete Time: 23:53 ll3 03/10 20:40 Order name: CT Stone Protocol; Complete Time: 21:10 rn 03/10 21:37 Order name: Urine Dipstick-Ancillary (obtain specimen); Complete Time: 21:55 ll3 03/10 21:55 Order name: Urine Dipstick-Ancillary; Complete Time: 22:15 EDMS Administered Medications: No medications were administered Disposition: 01:39 Co-signature as Attending Physician, Kenneth Walker MD. rn Disposition Summary: 03/10/22 23:53 Discharge Ordered Location: Home jr Problem: new jr8 Symptoms: have improved jr8 Condition: Stable jr8 Diagnosis - Hydronephrosis with renal and ureteral calculous obstruction jr8 Followup: jr8 - With: Ruben Hayes MD - When: 1 - 2 days - Reason: Recheck today's complaints, Continuance of care, Re-evaluation by your physician Discharge Instructions: - Discharge Summary Sheet jr8 - Kidney Stones jr8 - Hydronephrosis jr8 Forms: - Medication Reconciliation Form jr8 - Thank You Letter jr8 - Antibiotic Education jr8 - Prescription Opioid Use jr8 Prescriptions: - Zofran 4 mg Oral Tablet - take 1 tablet by ORAL route every 12 hours As needed; 20 tablet; Refills: 0, jr8 Product Selection Permitted - Tylenol-Codeine #3 300 mg-30 mg Oral - take 2 tablet by ORAL route every 8 hours As needed; 24 tablet; Refills: 0, jr8 Product Selection Permitted Signatures: Dispatcher [employer] EDMS Kenneth Walker MD MD rn Pena, Laura, RN RN lp1 Reynaldo Lauren PA PA jr8 Arielle Trujillo RN RN ll3
--- NOTE | 2022-03-10 23:54 | ER ---
Nurse's Notes [facility] Name: Paras Wheeler Age: 61 yrs Sex: Male : 1960 Arrival Date: 03/10/2022 Time: 20:15 Bed 19 Private MD: Diagnosis: Hydronephrosis with renal and ureteral calculous obstruction Presentation: 03/10 20:36 Chief complaint: Patient states: RLQ abdominal pain x 1 week, reports some blood in lp1 urine; Denies fever, N/V; Reports pain provoked with standing and walking, relieved with sitting down. Coronavirus screen: At this time, the client does not indicate any symptoms associated with coronavirus-19. Ebola Screen: No symptoms or risks identified at this time. Initial Sepsis Screen: Does the patient meet any 2 criteria? No. Patient's initial sepsis screen is negative. Does the patient have a suspected source of infection? No. Patient's initial sepsis screen is negative. Risk Assessment: Do you want to hurt yourself or someone else? Patient reports no desire to harm self or others. Onset of symptoms was March 10, 2022. 20:36 Method Of Arrival: Ambulatory lp1 20:36 Acuity: CHENCHO 3 lp1 Triage Assessment: 21:55 General: Appears uncomfortable, Behavior is calm, cooperative. Pain: Complains of pain ll3 in anterior aspect of right lateral abdomen. GI: Abdomen is round non-distended, Reports upper abdominal pain. : Urine is cloudy. Historical: - Allergies: 20:39 PENICILLINS (Hives, rash); lp1 - Home Meds: 20:39 Janumet 50-1,000 mg oral tab 1 tab 2 times per day [Active]; lovastatin 20 mg Oral tab lp1 [Active]; - PMHx: 20:39 Diabetes - NIDDM; Hyperlipidemia; Hypertension; Kidney stone; lp1 - PSHx: 20:39 Lithotripsy; lp1 - Immunization history:: Adult Immunizations up to date, Client reports receiving the 2nd dose of the Covid vaccine. - Social history:: Smoking status: Patient reports use of chewing tobacco. Screenin:17 Abuse screen: Denies threats or abuse. Nutritional screening: No deficits noted. ll3 Tuberculosis screening: No symptoms or risk factors identified. Fall Risk No fall in past 12 months (0 pts). No secondary diagnosis (0 pts). IV access (20 points). Ambulatory Aid- None/Bed Rest/Nurse Assist (0 pts). Gait- Normal/Bed Rest/Wheelchair (0 pts) Mental Status- Oriented to own ability (0 pts). Total Johnson Fall Scale indicates No Risk (0-24 pts). Assessment: 21:55 General: See triage assessment. ll3 22:36 Reassessment: No changes from previously documented assessment. Patient and/or family ll3 updated on plan of care and expected duration. Pain level reassessed. Patient is alert, oriented x 3, equal unlabored respirations, skin warm/dry/pink. 22:37 GI: Bowel sounds present X 4 quads. Abd is soft and non tender X 4 quads. ll3 23:40 Reassessment: No changes from previously documented assessment. Patient and/or family ll3 updated on plan of care and expected duration. Pain level reassessed. Patient is alert, oriented x 3, equal unlabored respirations, skin warm/dry/pink. Vital Signs: 20:36 BP 151 / 94; Pulse 75; Resp 20; Temp 98.9(O); Pulse Ox 99% on R/A; Weight 104.33 kg lp1 (R); Height 6 ft. 0 in. (182.88 cm); Pain 6/10; 22:36 BP 134 / 88; Pulse 64; Resp 16; Pulse Ox 97% on R/A; ll3 23:40 BP 141 / 88; Pulse 63; Resp 16; Pulse Ox 97% on R/A; ll3 20:36 Body Mass Index 31.19 (104.33 kg, 182.88 cm) lp1 ED Course: 20:15 Patient arrived in ED. bp1 20:36 Arm band placed on right wrist. lp1 20:38 Triage completed. lp1 20:42 Reynaldo Lauren PA is PHCP. jr8 20:42 Kenneth Walker MD is Attending Physician. jr8 20:55 CT Stone Protocol In Process Unspecified. EDMS 21:15 Inserted saline lock: 22 gauge in right antecubital area, using aseptic technique. ll3 Blood collected. 22:17 Patient has correct armband on for positive identification. Bed in low position. Call ll3 light in reach. Side rails up X 1. 22:36 Arielle Trujillo, RN is Primary Nurse. ll3 22:37 No provider procedures requiring assistance completed. ll3 23:53 Ruben Hayes MD is Referral Physician. jr8 03/11 00:02 IV discontinued, intact, bleeding controlled, No redness/swelling at site. Pressure ll3 dressing applied. Administered Medications: No medications were administered Outcome: 03/10 23:53 Discharge ordered by . jr8 03/11 00:02 Discharged to home ambulatory. ll3 Condition: stable Discharge instructions given to patient, Instructed on discharge instructions, follow up and referral plans. medication usage, Demonstrated understanding of instructions, follow-up care, medications, Prescriptions given X 2. 00:03 Patient left the ED. ll3 Signatures: Dispatcher [employer] EDMS Livier Mcbride, RN RN lp1 Reynaldo Lauren PA PA jr8 Maryjane Galindo [place], RN RN ll3 Corrections: (The following items were deleted from the chart) 03/10 22:17 22:16 General: See triage assessment. ll3 ll3
[2022-03-11 01:38] VITALS: TEMP 98.9
[2022-03-11 01:39] VITALS: O2SAT 97
[2022-03-11 01:40] VITALS: BP 141/88
== END 2022-03-11 00:03 | disposition home or self-care (01) ==
LOC: ER 20:14
DX: N13.2 Hydronephrosis with renal and ureteral calculous obstruction (principal); E11.9 Type 2 diabetes mellitus without complications; I10 Essential (primary) hypertension; E78.5 Hyperlipidemia, unspecified; F17.220 Nicotine dependence, chewing tobacco, uncomplicated; Z87.442 Personal history of urinary calculi; Z88.0 Allergy status to penicillin
CPT/HCPCS: 36415; 74176; 76377; 80048; 81003; 85025; 99284